=== PATIENT | male | born 1970 | race Caucasian/White ===

== ENCOUNTER 2019-10-20 16:50 | IRF | payer BC, SELFPAY ==
[2019-10-20 16:45] VITALS: BMI 34.9
--- NOTE | 2019-10-20 17:44 | PC.NURSE ---
This patient, Aleks Carpio, was admitted to [facility] Room 230-02. Patient/family oriented to hospital policies and general routines including ID bracelet, bed and alarms, visiting hours, pain management, procedures, bathroom and other care routines, personal items, smoking policy, room service/diet, and visiting hours. Valuables list has been completed. Information on how to activate the Rapid Response Team has been discussed. Patient/Family are encouraged to report perceived risks to care and to ask questions if they do not understand what they are told or what they should do.
[2019-10-20 18:02] VITALS: BP 149/79; PULSE 96; RESP 20; TEMP 37.3; O2SAT 99
[2019-10-20 18:52] VITALS: BMI 35.6
[2019-10-20] MEDS: methocarbamoL 500 MG TABLET 1000 MG PO (20:32)
[2019-10-20 20:33] LABS: Add Urine Microscopic? NO; Appearance Urine Clear (Clear); Bilirubin Urine Negative (Negative); Blood Urine Negative (Negative); Color Urine Yellow (Yellow); Glucose Urine UA Negative (Negative); Ketones Urine Negative (Negative); Leukocyte Esterase Ur Negative LEU/UL (Negative); Nitrate Urine Negative (Negative); Protein Urine Negative (Negative); Specific Grav Ur 1.018 (1.001-1.035); Urobilinogen Urine Negative mg/dL (<2.0)
[2019-10-20 21:37] VITALS: BP 127/71; PULSE 103; RESP 18; TEMP 36.6; O2SAT 97
[2019-10-20] MEDS: ONDANSETRON HCL ODT 4 MG TABLET PO (22:37)
[2019-10-21 05:29] LABS: Basophils Percent Auto 0.1 % (0.2-1.2); Eosinophils Absolute Auto 0.2 K/mm3 (0-0.3); Eosinophils Percent Auto 2.9 % (0-4.4); Hematocrit 25.5 % (42.0-52.0); Hemoglobin 8.2 g/dL (14.0-18.0); Immature Granulocyte Absolute 0.19 K/mm3 (0.00-0.031); Immature Granulocyte Percent A 2.5 % (0-0.5); Lymphocytes Percent Auto 17.4 % (18.3-44.2); Mean Corpuscular HGB Conc 32.2 g/dl (32-36); Mean Corpuscular Hemoglobin 28.6 pg (26-34); Mean Corpuscular Volume 88.9 fl (80-100); Mean Platelet Volume 8.7 fl (7.4-10.4); Monocytes Absolute Auto 0.9 K/mm3 (0.1-0.6); Monocytes Percent Auto 11.4 % (2.6-8.5); Neutrophils Absolute Auto 4.9 K/mm3 (1.3-6.7); Neutrophils Percent Auto 65.7 % (45.5-73.1); Platelet Count Result 191 k/mm3 (150-375); Red Blood Count 2.87 M/mm3 (4.6-6.20); Red Cell Distribution Width 12.9 % (11.5-14.5); White Blood Count 7.5 K/mm3 (4.5-10.0)
[2019-10-21 05:43] LABS: Anion Gap 5 mmol/L (8-16); Blood Urea Nitrogen 19 mg/dL (9-20); Calcium 7.9 mg/dL (8.4-10.2); Carbon Dioxide 26 mmol/L (22-30); Chloride 103 mmol/L (98-107); Estimated CRCL calculation 81 ml/min; Estimated Glomerular Filt Rate > 60; Glucose 114 mg/dL (75-110); Potassium 4.3 mmol/L (3.4-5.0); Sodium 134 mmol/L (137-145)
[2019-10-21 05:46] VITALS: BP 120/74; PULSE 84; RESP 18; TEMP 36.1; O2SAT 96
[2019-10-21] MEDS: methocarbamoL 500 MG TABLET 1000 MG PO ×4 (07:55→23:35)
[2019-10-21] MEDS: TAMSULOSIN HCL 0.4 MG CAPSULE PO (07:55)
[2019-10-21] MEDS: LIDOCAINE 5% PATCH 3 PATCH TOPICAL (07:56)
[2019-10-21] MEDS: ENOXAPARIN 40 MG/0.4 ML SYRINGE SUB-Q (07:56)
--- NOTE | 2019-10-21 12:00 | WPDREHABHP ---
H&P: HPI History of Present Illness Date/Time: 10/21/19 14:59 Chief complaint: mmt Narrative: Aleks Carpio is a 49 year old male HISTORY OF PRESENT ILLNESS: The patient's primary rehab impairment category is multiple major trauma The etiologic diagnosis is multiple major trauma after a fall from a tree I saw this patient [id number] on October 21, 2019 at 12 noon The patient is a 49-year-old right-handed white male with no significant past medical history presented to [facility] in [facility] on October 14, 2019 after falling off of a ladder when he was cutting date tree. The patient was approximately 15 to 20 feet high many fell and hit the ground on his right side. There was a positive loss of consciousness for less than a minute. The patient complained of right upper extremity, left hip, lower back, and right flank/chest pain. The evaluation demonstrated right 4th through 7 rib fractures, a tiny occult right pneumothorax, right pulmonary contusion, bilateral sacral fractures, left superior inferior pubic rami fractures, right humerus fracture and right radius fracture. Orthopedic surgery was consulted and the patient underwent an open reduction and internal fixation to the right distal radius and humeral shaft on October 16, 2019. Postoperatively the patient has experienced acute postoperative pain which he still continues to, acute blood-loss anemia, acute kidney injury, and urinary retention. He had a trial of urinary catheter however was unable to void and the catheter had to be put back on. Postoperative pain is being managed with oral analgesics acute blood-loss anemia is stable, acute kidney injury has resolved and the patient started on tamsulosin for any retention. He is nonweightbearing to the right upper extremity for 6 to 8 weeks and T2 toe-touch weight-bearing to the left lower extremity. He has a hard splint and sling to the right upper extremity. The patient was discharged to us on Lovenox for DVT prophylaxis. The patient does complain beside the pain at multiple sites that the paresthesias primarily of the right thumb and has been told it is due to the compromised blood supply however is seems like he might have stretched his brachial plexus when he landed on his right side he has also barely able to move his finger of his right hand which have been present since the injury The patient os has not traveled outside the [place] or had contact with someone who is ill that has traveled outside the [place] in the past 21 days. The patient has not traveled to an area of the [place] that is experiencing no transmission of the Coronavirus and has not had close personal contact with anyone that has. The patient does not have a fever. The patient is not experiencing lower respiratory illness symptoms. Therapy was initiated at the acute care facility and the patient transferred to us from [facility] in [facility] on October 20, 2019 on FALLS OR SURGERIES: The patient has had major surgeries in the 100 days prior to admission. They had falls in the past year. They had falls with injury in the past year. 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 The patient is able to stay on the 1st level if needed. The patient was completely independent and driving prior with no need for assistive device. The patient has a lot of friends and family that will be able to assist is following rehab if necessary. The patient is very cooperative and motivated to be independent cane. The most recent surgery the patient has was on the right upper extremity a during thi
[2019-10-21 12:37] VITALS: BMI 35.6
[2019-10-21 14:00] VITALS: BP 120/78; PULSE 91; RESP 17; TEMP 37; O2SAT 99
[2019-10-21 22:00] VITALS: BP 122/78; PULSE 84; RESP 20; TEMP 36.7; O2SAT 96
[2019-10-22] MEDS: ONDANSETRON HCL ODT 4 MG TABLET PO (05:12)
[2019-10-22 06:00] VITALS: BP 128/79; PULSE 65; RESP 20; TEMP 36.4; O2SAT 100
[2019-10-22] MEDS: methocarbamoL 500 MG TABLET 1000 MG PO ×3 (06:10→18:51)
[2019-10-22 08:00] VITALS: PULSE 65; RESP 20; O2SAT 100
[2019-10-22] MEDS: TAMSULOSIN HCL 0.4 MG CAPSULE PO (08:04)
[2019-10-22] MEDS: LIDOCAINE 5% PATCH 3 PATCH TOPICAL (08:04)
[2019-10-22] MEDS: ENOXAPARIN 40 MG/0.4 ML SYRINGE SUB-Q (08:04)
[2019-10-22] MEDS: DOCUSATE SODIUM 100 MG CAPSULE PO (12:08)
[2019-10-22 14:00] VITALS: BP 138/76; PULSE 68; RESP 20; TEMP 36.8; O2SAT 99
--- NOTE | 2019-10-22 16:04 | RPD ---
INDIVIDUALIZED PLAN OF CARE FOR Aleks Carpio Brief Synthesis of Pre-Admission Screen, Post-Admission Evaluation and Therapy Evaluations: The patient presents to rehab with major multiple trauma with multiple fracture of bilateral sacral fractures, left superior and inferior pubic rami fractures, and a closed displaced comminuted fracture of shaft of right humerus. Comorbidities include right 4-7 rib fractures, tiny occult right pneumothorax, right pulmonary contusion, closed fracture of styloid process of right ulna, closed fracture of distal end of right radius, acute postoperative and post-traumatic pain, respiratory insufficiency, urinary retention, leukocytosis, acute blood loss anemia requiring transfusion, constipation, and acute kidney injury. The complexity of the patient's medical management, nursing, and therapy needs require an inpatient rehab hospital stay with a physician-led interdisciplinary team approach. The patient?s needs will be best met in an intensive program vs. at a lower level of care. The patient requires physician services for medical oversight, management of postop complications in setting of present comorbidities, and pain management. He will be followed at least three times a week by the rehabilitation physician. The patient requires nursing services for DVT prophylactics, infection protection, medication management and education, pressure relief, and wound care. Deficits include:ADLs, Balance, Endurance, Family Training/Education, Mobility, Pain Management, ROM, Safety, Strength, and Transfers [employer]/Case Management for: Discharge Planning and Patient/Family Counseling Physical Therapy: 5 days per week for 90 minutes. Treatments may include: Therapeutic Exercise, Gait Training, Neuromuscular Re-education, Transfer Training, Community Reintegration, Bed Mobility, Patient/Family Education, Wheelchair Mobility Group Therapy/Concurrent Therapy Rationales: -Improve attention span during functional activities in a distracted environment. -Enhance problem solving and/or adequate judgment skills during functional activities in a distracted environment. -Promote increased safety awareness in a distracted environment to reduce fall risk with functional tasks, transfers, and ambulation to allow a more safe, self-sufficient return to the home environment. -Improve dynamic balance skills to promote safety and independence with functional activities in a distracted environment for maximum gain. Occupational Therapy: 5 days per week for 90 minutes. Treatments may include: Therapeutic Exercise, Therapeutic Activity, Cognitive Training, Self-Care Transfer Training, Community Reintegration, Home Management, Patient/Family Education, Wheelchair Mobility Training, Energy Conservation Training Group Therapy/Concurrent Therapy Rationales: -Allow therapist to observe and teach generalization and carry-over of skills learned in individual therapy. -Enhance problem solving and sequencing skills during therapeutic activities in a distracted environment. -Promote increased safety awareness in a realistic setting to reduce fall risk with functional tasks due to visual and verbal distractions. -Increase functional level with ADLs, ADL transfers and use of adaptive equipment through therapeutic activities with others while promoting safety to allow a more safe, self-sufficient return home. Medical Prognosis: Good Anticipated Length of Stay: 14 days Rehab Goals: Eating Goal: 06-Independent Oral Hygiene Goal: 06-Independent Toileting Hygiene Goal: 04-Supervision or Touching Assistance Shower/Bathe Self Goal: 04-Supervision or Touching Assistance Upper Body Dressing Goal: 05-Setup or Clean Up Assistance Lower Body Dressing Goal: 04-Supervision or Touching Assistance Putting On/Taking Off Footwear Goal: 04-Supervision or Touching Assistance Rolling Left and Right Goal: 06-Independent Sit to Lying Goal: 06-Independent Lying to Sitting on Side of Be
[2019-10-22] MEDS: NAPROXEN 250 MG TABLET PO (16:05)
[2019-10-22 22:00] VITALS: BP 123/76; PULSE 90; RESP 20; TEMP 36.5; O2SAT 96
[2019-10-23] MEDS: methocarbamoL 500 MG TABLET 1000 MG PO ×4 (00:03→18:19)
[2019-10-23 05:55] VITALS: BP 117/71; PULSE 67; RESP 20; TEMP 36.2; O2SAT 100
[2019-10-23] MEDS: NAPROXEN 250 MG TABLET PO ×2 (09:33→18:19)
[2019-10-23] MEDS: ENOXAPARIN 40 MG/0.4 ML SYRINGE SUB-Q (09:34)
[2019-10-23] MEDS: LIDOCAINE 5% PATCH 3 PATCH TOPICAL (09:34)
[2019-10-23] MEDS: TAMSULOSIN HCL 0.4 MG CAPSULE PO (09:34)
[2019-10-23] MEDS: polyethylene glycoL 3350 17 GM POWD.PACK PO (12:05)
[2019-10-23 14:00] VITALS: BP 129/70; PULSE 85; RESP 20; TEMP 36.1; O2SAT 100
--- NOTE | 2019-10-23 14:29 | WPDNEURORHBP ---
Subjective Date/time seen: 10/23/19 14:29 Interval history: this 49-year-old gentleman is here because of multiple major trauma including a right upper extremity and also the sacral fracture and the pelvic fractures and he has weight limitations his pain is better controlled and doing fairly well he denies any headache nausea vomiting chest pain shortness of breath fever chills sore throat Review of Systems Review of Systems: All systems reviewed & are unremarkable except as noted in HPI and below Functional Status Transfers Ability Ability to Transfer In/Out of Chair: Total Assistance X 2 Exam Const: General: comfortable and no acute distress HENMT: General nose exam: Normal nares present Mouth: Yes moist mucous membranes Eyes: General: appearance normal, both eyes and all related structures Neck: Neck: supple and no JVD Resp: Effort & Inspection: normal respiratory effort Auscultation: clear to auscultation bilaterally Cardio: Rate: regular rate Rhythm: regular rhythm GI: GI Palp: Yes Soft to palpation Auscultation: normal bowel sounds Neuro: Other: patient is awake and alert well oriented has normal speech and language function normal cranial examination but over weakness he has is related to the multiple trauma including the right upper extremity and the pelvic and sacral fractures Extrem: Other: right arm in the hard splint and he does have some movements of the fingers now comparing to when he came to us Psych: Mental Status: mental status grossly normal Objective Data Vital Signs Vital Signs: Vital Signs - 24 hr 10/22/19 22:00 10/23/19 05:55 10/23/19 14:00 Temperature 36.5 C 36.2 C L 36.1 C L Pulse Rate 90 67 85 Respiratory Rate 20 20 20 Blood Pressure 123/76 117/71 129/70 Pulse Oximetry 96 100 100 Intake/Output Intake/Output: Intake & Output 10/20/19 10/21/19 10/22/19 10/23/19 23:59 23:59 23:59 23:59 Intake Total 1320 480 600 Output Total 550 1150 Balance -550 170 480 600 Meds/Results Medications: Active Medications Generic Name Dose Route Start Last Admin Trade Name Freq PRN Reason Stop Dose Admin Hydrocodone Bitart/Acetaminophen 1 tab 10/22/19 08:07 10/23/19 09:31 [place] 7.5-325 Mg PO 1 tab Q4H PRN Administration Pain Rated 7-10 Docusate Sodium 100 mg 10/20/19 17:42 10/22/19 12:08 Colace Capsule PO 100 mg BID PRN Administration Constipation Enoxaparin Sodium 40 mg 10/21/19 09:00 10/23/19 09:34 Lovenox SUB-Q 11/17/19 09:01 40 mg DAILY BASILIO Administration Lidocaine 3 patch 10/21/19 09:00 10/23/19 09:34 Lidoderm TOPICAL 11/19/19 09:01 3 patch DAILY BASILIO Administration Methocarbamol 1,000 mg 10/21/19 13:00 10/23/19 12:05 Robaxin PO 11/04/19 06:01 1,000 mg Q6HR BASILIO Administration Naproxen 250 mg 10/22/19 17:00 10/23/19 09:33 Naproxen PO 250 mg BIDWM BASILIO Administration Ondansetron HCl 4 mg 10/20/19 17:42 10/22/19 05:12 Zofran Odt PO 4 mg Q8H PRN Administration Nausea Oxycodone HCl 10 mg 10/21/19 13:00 10/23/19 12:05 Roxicodone Ir Tablet PO 10 mg Q6HR BASILIO Administration Polyethylene Glycol 17 gm 10/22/19 19:00 10/23/19 12:05 Miralax PO 17 gm QAM PRN Administration Constipation Tamsulosin HCl 0.4 mg 10/21/19 09:00 10/23/19 09:34 Flomax PO 11/19/19 09:01 0.4 mg DAILY BASILIO Administration Progress Note: A&P Assessment and Plan (1) Concussion: Code(s): S06.0X9A - Concussion with loss of consciousness of unspecified duration, initial encounter Status: Acute (2) Pubic ramus fracture: Code(s): S32.599A - Other specified fracture of unspecified pubis, initial encounter for closed fracture Status: Acute (3) Sacral fracture: Code(s): S32.10XA - Unspecified fracture of sacrum, initial encounter for closed fracture Status: Acute (4) Status post fall: Code(s): Z91.81 - History of falling St
[2019-10-23 20:29] VITALS: BP 122/65; PULSE 99; RESP 18; TEMP 36.6; O2SAT 98
[2019-10-24] MEDS: methocarbamoL 500 MG TABLET 1000 MG PO ×5 (00:08→23:52)
[2019-10-24 05:30] VITALS: BP 115/75; PULSE 68; RESP 18; TEMP 36.6; O2SAT 100
[2019-10-24] MEDS: TAMSULOSIN HCL 0.4 MG CAPSULE PO (09:21)
[2019-10-24] MEDS: ENOXAPARIN 40 MG/0.4 ML SYRINGE SUB-Q (09:21)
[2019-10-24] MEDS: LIDOCAINE 5% PATCH 3 PATCH TOPICAL (09:22)
[2019-10-24] MEDS: NAPROXEN 250 MG TABLET PO ×2 (09:22→16:48)
[2019-10-24 14:00] VITALS: BP 136/70; PULSE 88; RESP 18; TEMP 36.9; O2SAT 99
[2019-10-24 14:37] VITALS: BMI 11.0
[2019-10-24 21:44] VITALS: BP 119/67; PULSE 91; RESP 18; TEMP 36.4; O2SAT 95
[2019-10-25 05:40] VITALS: BP 127/72; PULSE 82; RESP 18; TEMP 36.1; O2SAT 100
[2019-10-25] MEDS: methocarbamoL 500 MG TABLET 1000 MG PO ×3 (05:54→17:52)
[2019-10-25] MEDS: TAMSULOSIN HCL 0.4 MG CAPSULE PO (09:15)
[2019-10-25] MEDS: ENOXAPARIN 40 MG/0.4 ML SYRINGE SUB-Q (09:16)
[2019-10-25] MEDS: LIDOCAINE 5% PATCH 3 PATCH TOPICAL (09:17)
[2019-10-25] MEDS: NAPROXEN 250 MG TABLET PO ×2 (09:17→17:13)
--- NOTE | 2019-10-25 13:03 | WPDNEURORHBP ---
Subjective Date/time seen: 10/25/19 13:03 young man admitted to the rehab floor for multiple major trauma including the right upper extremity, sacral fracture and pelvic fracture with weight limitations at present pain is well controlled and has no obvious complaints of generalized symptomatology Review of Systems Review of Systems: All systems reviewed & are unremarkable except as noted in HPI and below Functional Status Transfers Ability Ability to Transfer In/Out of Chair: Total Assistance X 2 Exam Narrative: Exam Narrative: examination reveals him to be awake alert in no distress ear nose throat examination normal head normocephalic neck is supple no JVD heart regular with no murmur lungs clear to auscultation abdomen is soft normal bowel sounds no tenderness neurological is awake alert oriented x3 is speech nor dysphasic no dysarthric no dystonic the brain of the examination is normal motor examination revealed him to have no obvious change in the mental physical strength extremities normal and he has no obvious signs of depression Objective Data Vital Signs Vital Signs: Vital Signs - 24 hr 10/24/19 14:00 10/24/19 21:44 10/25/19 05:40 Temperature 36.9 C 36.4 C L 36.1 C L Pulse Rate 88 91 82 Respiratory Rate 18 18 18 Blood Pressure 136/70 119/67 127/72 Pulse Oximetry 99 95 100 Intake/Output Intake/Output: Intake & Output 10/22/19 10/23/19 10/24/19 10/25/19 23:59 23:59 23:59 23:59 Intake Total 480 840 520 360 Output Total 950 Balance 480 840 -430 360 Meds/Results Medications: Active Medications Generic Name Dose Route Start Last Admin Trade Name Armandoq PRN Reason Stop Dose Admin Hydrocodone Bitart/Acetaminophen 1 tab 10/22/19 08:07 10/23/19 14:41 [place] 7.5-325 Mg PO 1 tab Q4H PRN Administration Pain Rated 7-10 Docusate Sodium 100 mg 10/20/19 17:42 10/22/19 12:08 Colace Capsule PO 100 mg BID PRN Administration Constipation Enoxaparin Sodium 40 mg 10/21/19 09:00 10/25/19 09:16 Lovenox SUB-Q 11/17/19 09:01 40 mg DAILY BASILIO Administration Lidocaine 3 patch 10/21/19 09:00 10/25/19 09:17 Lidoderm TOPICAL 11/19/19 09:01 3 patch DAILY BASILIO Administration Methocarbamol 1,000 mg 10/21/19 13:00 10/25/19 09:15 Robaxin PO 11/04/19 06:01 1,000 mg Q6HR BASILIO Administration Naproxen 250 mg 10/22/19 17:00 10/25/19 09:17 Naproxen PO 250 mg BIDWM BASILIO Administration Ondansetron HCl 4 mg 10/20/19 17:42 10/22/19 05:12 Zofran Odt PO 4 mg Q8H PRN Administration Nausea Oxycodone HCl 10 mg 10/21/19 13:00 10/25/19 12:18 Roxicodone Ir Tablet PO 10 mg Q6HR BASILIO Administration Polyethylene Glycol 17 gm 10/22/19 19:00 10/23/19 12:05 Miralax PO 17 gm QAM PRN Administration Constipation Tamsulosin HCl 0.4 mg 10/21/19 09:00 10/25/19 09:15 Flomax PO 11/19/19 09:01 0.4 mg DAILY BASILIO Administration Progress Note: A&P Assessment and Plan (1) Concussion: Code(s): S06.0X9A - Concussion with loss of consciousness of unspecified duration, initial encounter Status: Acute (2) Pubic ramus fracture: Code(s): S32.599A - Other specified fracture of unspecified pubis, initial encounter for closed fracture Status: Acute (3) Sacral fracture: Code(s): S32.10XA - Unspecified fracture of sacrum, initial encounter for closed fracture Status: Acute (4) Status post fall: Code(s): Z91.81 - History of falling Status: Acute (5) Pulmonary contusion: Code(s): S27.329A - Contusion of lung, unspecified, initial encounter Status: Acute (6) Multiple rib fractures: Code(s): S22.49XA - Multiple fractures of ribs, unspecified side, initial encounter for closed fracture Status: Acute (7) Right humeral fracture: Code(s): S42.301A - Unspecified fracture of shaft of humerus, right arm, initial encounter for closed fracture Status: A
[2019-10-25 14:00] VITALS: BP 142/79; PULSE 82; RESP 20; TEMP 37.1; O2SAT 100
[2019-10-25 22:00] VITALS: BP 127/64; PULSE 97; RESP 18; TEMP 36.6; O2SAT 100
[2019-10-26] MEDS: methocarbamoL 500 MG TABLET 1000 MG PO ×4 (00:02→18:02)
[2019-10-26 06:00] VITALS: BP 128/73; PULSE 70; RESP 16; TEMP 36; O2SAT 100
[2019-10-26] MEDS: LIDOCAINE 5% PATCH 3 PATCH TOPICAL (09:52)
[2019-10-26] MEDS: TAMSULOSIN HCL 0.4 MG CAPSULE PO (09:52)
[2019-10-26] MEDS: NAPROXEN 250 MG TABLET PO ×2 (09:52→18:02)
[2019-10-26] MEDS: ENOXAPARIN 40 MG/0.4 ML SYRINGE SUB-Q (09:52)
--- NOTE | 2019-10-26 13:27 | PCDIET ---
Nutrition Follow-Up Complete: Nutrition Diagnosis: Predicted suboptimal oral intake related to patient dislike of bed luna use as evidenced by patient stating limiting intake to primarily liquids. Nutrition Goal: Patient to consume 75% of meals or greater and maintain weight. Goal consuming 100% of most meals on regular diet which is appropriate. Patient reports tolerating solid foods well without c/o or concerns. Last recorded weight is 109.6 kg. Recommend obtaining new weight. Bowel Motility: +BM today. Labs Reviewed: No new labs available. Meds Noted: [place], Colace, Zofran, Roxicodone, Miralax Additional Notes: No documented pressure sores. Will continue to monitor with same goal. Nutrition Monitoring and Evaluation: Follow up in 7 days.
[2019-10-26 14:00] VITALS: BP 135/74; PULSE 92; RESP 20; TEMP 36.3; O2SAT 100
--- NOTE | 2019-10-26 16:36 | PCOTNOTE ---
Addendum entered by Darrel Mandujano OT 10/26/19 16:41: Addendum, pt continues to be non weight bearing to Right upper extremity. Original Note: Late entry: 10/23/19: Therapist spoke with orthopedic physician Dr. Mensah's office to clarify orders and restrictions for right UE. Dr. Mensah states the patient may participate in Right hand ROM, wrist PROM, elbow PROM and shoulder ROM as tolerated by patient to prevent contracture. OK to remove splint and sling for therapy.
[2019-10-26 22:00] VITALS: BP 132/76; PULSE 95; RESP 20; TEMP 36.8; O2SAT 97
[2019-10-27 06:00] VITALS: BP 125/73; PULSE 72; RESP 20; TEMP 36.3; O2SAT 100
[2019-10-27] MEDS: methocarbamoL 500 MG TABLET 1000 MG PO ×4 (06:26→17:30)
[2019-10-27] MEDS: ENOXAPARIN 40 MG/0.4 ML SYRINGE SUB-Q (09:00)
[2019-10-27] MEDS: TAMSULOSIN HCL 0.4 MG CAPSULE PO (09:00)
[2019-10-27] MEDS: NAPROXEN 250 MG TABLET PO ×2 (09:01→17:30)
[2019-10-27] MEDS: LIDOCAINE 5% PATCH 3 PATCH TOPICAL (09:01)
[2019-10-27 14:00] VITALS: BP 133/74; PULSE 90; RESP 18; TEMP 36.6; O2SAT 100
--- NOTE | 2019-10-27 14:30 | PCOTNOTE ---
Mr. Carpio was evaluated for a tub transfer bench and drop arm commode on 10/26/09 by this occupational therapist. The tub transfer bench and drop arm commode will resolve that patient?s self-care limitations and will be used for ADL?s within the home. The patient is currently unable to utilize the tub or toilet within his home due to recent fall with pelvic, sacral, humoral, and radius fractures requiring toe touch weight bearing to left lower extremity and non weight bearing to right upper extremity. The patient is unable to step over edge of tub safely with weight bearing restrictions or tolerate standing for completion of shower. The patient is unable to ambulate to bathroom due to weight bearing restrictions and is unable to complete slide board transfer from wheelchair to standard toilet due to weakness and weight bearing restrictions. The patient is able to complete slide board transfer from wheelchair to drop arm commode safely. The patient can safely use the tub transfer bench and drop arm commode. Both the tub transfer bench and drop arm commode will decrease caregiver burden and allow for safety completion of toileting and bathing in the patient's home. The tub transfer bench and drop arm commode are required due to patients? history of multiple fractures with non weight bearing to right upper extremity and toe touch weight bearing to left lower extremity. I agree with and certify that the above recommendation is medically necessary. Referring Physician Date
--- NOTE | 2019-10-27 15:10 | WPDNEURORHBP ---
Subjective Date/time seen: 10/27/19 15:10 Interval history: this 49-year-old is a here after a fall with major multiple trauma he is nonweightbearing of the right upper extremity toe-touch weight-bearing on the left lower extremity due to multiple fracture as have been mentioned in my previous notes his pain control is better however that is the most important thing which is really not helping him to be more active in the PT and OT from the occupational therapist he does require minimum assist except for toileting his right fingers are improving slowly but difficulty is in the transferring and moving from bed to chair etc On the other hand he denies any headache nausea vomiting chest pain shortness of breath fever chills sore throat Review of Systems Review of Systems: All systems reviewed & are unremarkable except as noted in HPI and below Functional Status Transfers Ability Ability to Transfer In/Out of Chair: Standby Assistance Exam Const: General: comfortable and no acute distress HENMT: General nose exam: Normal nares present Mouth: Yes moist mucous membranes Eyes: General: appearance normal, both eyes and all related structures Neck: Neck: supple and no JVD Resp: Effort & Inspection: normal respiratory effort Auscultation: clear to auscultation bilaterally Cardio: Rate: regular rate Rhythm: regular rhythm GI: GI Palp: Yes Soft to palpation Auscultation: normal bowel sounds Skin: General skin exam: normal color and no rashes or lesions noted Neuro: Other: the way Zabrina patient is awake alert well oriented normal speech and language function normal cranial examination right upper extremities nonweightbearing and has the hard splint fingers moving little bit and the sensation is coming back slowly almost all limitations are due to the multiple fractures which Zabrina Dillard the pelvic fracture on the left side the extremity which is functioning helping him is the left upper extremity and right lower extremity Extrem: Other: hard splint for the right forearm Psych: Mental Status: mental status grossly normal Objective Data Vital Signs Vital Signs: Vital Signs - 24 hr 10/26/19 22:00 10/27/19 06:00 10/27/19 14:00 Temperature 36.8 C 36.3 C L 36.6 C Pulse Rate 95 72 90 Respiratory Rate 20 20 18 Blood Pressure 132/76 125/73 133/74 Pulse Oximetry 97 100 100 Intake/Output Intake/Output: Intake & Output 10/24/19 10/25/19 10/26/19 10/27/19 23:59 23:59 23:59 23:59 Intake Total 752 565 2597 600 Output Total 950 1000 8140 920 Balance -837 -437 -043 -414 Meds/Results Medications: Active Medications Generic Name Dose Route Start Last Admin Trade Name Freq PRN Reason Stop Dose Admin Hydrocodone Bitart/Acetaminophen 1 tab 10/22/19 08:07 10/23/19 14:41 [place] 7.5-325 Mg PO 1 tab Q4H PRN Administration Pain Rated 7-10 Docusate Sodium 100 mg 10/20/19 17:42 10/22/19 12:08 Colace Capsule PO 100 mg BID PRN Administration Constipation Enoxaparin Sodium 40 mg 10/21/19 09:00 10/27/19 09:00 Lovenox SUB-Q 11/17/19 09:01 40 mg DAILY BASILIO Administration Lidocaine 3 patch 10/21/19 09:00 10/27/19 09:01 Lidoderm TOPICAL 11/19/19 09:01 3 patch DAILY BASILIO Administration Methocarbamol 1,000 mg 10/21/19 13:00 10/27/19 11:55 Robaxin PO 11/04/19 06:01 1,000 mg Q6HR BASILIO Administration Naproxen 250 mg 10/22/19 17:00 10/27/19 09:01 Naproxen PO 250 mg BIDWM BASILIO Administration Ondansetron HCl 4 mg 10/20/19 17:42 10/22/19 05:12 Zofran Odt PO 4 mg Q8H PRN Administration Nausea Oxycodone HCl 10 mg 10/21/19 13:00 10/27/19 11:55 Roxicodone Ir Tablet PO 10 mg Q6HR BASILIO Administration Polyethylene Glycol 17 gm 10/22/19 19:00 10/23/19 12:05 Miralax PO 17 gm QAM PRN Administration Constipation Tamsulosin HCl 0.4 mg 10/21/19 09:00 10/27/19 09:00 Flomax PO 11/19/19 09:01 0.4 mg DAILY BASILIO Administration
[2019-10-27 21:10] VITALS: BP 117/66; PULSE 92; RESP 18; TEMP 36.7; O2SAT 97
[2019-10-28] MEDS: methocarbamoL 500 MG TABLET 1000 MG PO ×4 (00:06→19:01)
[2019-10-28 05:07] LABS: Basophils Absolute Auto 0.1 K/mm3 (0.0-0.1); Basophils Percent Auto 0.5 % (0.2-1.2); Eosinophils Absolute Auto 0.4 K/mm3 (0-0.3); Eosinophils Percent Auto 4.3 % (0-4.4); Hematocrit 28.1 % (42.0-52.0); Hemoglobin 8.8 g/dL (14.0-18.0); Lymphocytes Absolute Auto 1.68 K/mm3 (0.9-3.2); Mean Corpuscular HGB Conc 31.3 g/dl (32-36); Mean Corpuscular Volume 89.5 fl (80-100); Mean Platelet Volume 8.4 fl (7.4-10.4); Monocytes Absolute Auto 0.9 K/mm3 (0.1-0.6); Monocytes Percent Auto 9.4 % (2.6-8.5); Neutrophils Absolute Auto 6.6 K/mm3 (1.3-6.7); Neutrophils Percent Auto 66.8 % (45.5-73.1); Platelet Count Result 412 k/mm3 (150-375); Red Blood Count 3.14 M/mm3 (4.6-6.20); Red Cell Distribution Width 12.7 % (11.5-14.5); White Blood Count 9.9 K/mm3 (4.5-10.0)
[2019-10-28 05:22] LABS: Anion Gap 6 mmol/L (8-16); Blood Urea Nitrogen 24 mg/dL (9-20); Calcium 8.4 mg/dL (8.4-10.2); Carbon Dioxide 27 mmol/L (22-30); Chloride 103 mmol/L (98-107); Estimated CRCL calculation 75 ml/min; Estimated Glomerular Filt Rate 59; Glucose 115 mg/dL (75-110); Potassium 4.7 mmol/L (3.4-5.0); Sodium 136 mmol/L (137-145)
[2019-10-28 05:46] VITALS: BP 125/74; PULSE 70; RESP 18; TEMP 36.2; O2SAT 100
[2019-10-28 08:00] VITALS: PULSE 94; RESP 20; O2SAT 97
--- NOTE | 2019-10-28 08:31 | PCPTNOTE ---
Aleks Oneal Shirin was evaluated for a slide board on 10/28/2019 by this physical therapist. The slide board will resolve patient's mobility limitations and will be used for ADL's within the home. The patient can safely use the slide board. ?The slide board will resolve the patient?s mobility deficits, including transfers/ADL's. Fany Virgen PT
[2019-10-28] MEDS: ENOXAPARIN 40 MG/0.4 ML SYRINGE SUB-Q (09:40)
[2019-10-28] MEDS: LIDOCAINE 5% PATCH 3 PATCH TOPICAL (09:40)
[2019-10-28] MEDS: TAMSULOSIN HCL 0.4 MG CAPSULE PO (09:41)
[2019-10-28] MEDS: NAPROXEN 250 MG TABLET PO ×2 (09:41→19:01)
[2019-10-28 14:00] VITALS: BP 129/73; PULSE 94; RESP 20; TEMP 37.1; O2SAT 97
--- NOTE | 2019-10-28 15:22 | WPDNEURORHBP ---
Subjective Date/time seen: 10/28/19 15:22 Interval history: this 49-year-old is is status post multiple fracture secondary to a fall which includes the right upper extremity and the left pelvic and the sacral fractures he is nonweightbearing of the right upper extremity and toe-touch weight-bearing of the left lower extremity he is moving forward is pain is under control we have started the bladder training on him hopefully to get rid of the Medrano catheter soon he denies any headache nausea vomiting chest pain shortness of breath fever chills sore throat Review of Systems Review of Systems: All systems reviewed & are unremarkable except as noted in HPI and below Functional Status Transfers Ability Ability to Transfer In/Out of Chair: Standby Assistance Exam Const: General: comfortable and no acute distress HENMT: General nose exam: Normal nares present Mouth: Yes moist mucous membranes Eyes: General: appearance normal, both eyes and all related structures Neck: Neck: supple and no JVD Resp: Effort & Inspection: normal respiratory effort Auscultation: clear to auscultation bilaterally Cardio: Rate: regular rate Rhythm: regular rhythm GI: GI Palp: Yes Soft to palpation Auscultation: normal bowel sounds Urinary Catheter: Urinary Catheter: patent and draining Skin: General skin exam: normal color and no rashes or lesions noted Neuro: Other: the patient's right upper extremity is nonweightbearing due to the fracture of the humerus and the radius the hard splint is still on but he is able to move fingers little bit and getting the active range and passive motion of the shoulder area He is toe-touch weight-bearing of the left lower extremity due to the sacral and the pelvic fractures however engage in therapy and doing fairly well making progress Extrem: Other: right forearm in the hard splint able to move the fingers little bit the sensory deficit at the dorsal aspect of the hand remains roughly about the same Psych: Mental Status: mental status grossly normal Objective Data Vital Signs Vital Signs: Vital Signs - 24 hr 10/27/19 21:10 10/28/19 05:46 Temperature 36.7 C 36.2 C L Pulse Rate 92 70 Respiratory Rate 18 18 Blood Pressure 117/66 125/74 Pulse Oximetry 97 100 Intake/Output Intake/Output: Intake & Output 10/25/19 10/26/19 10/27/19 10/28/19 23:59 23:59 23:59 23:59 Intake Total 840 1270 1840 480 Output Total 1000 2050 1725 Balance -160 -780 115 480 Meds/Results Medications: Active Medications Generic Name Dose Route Start Last Admin Trade Name Agapito PRN Reason Stop Dose Admin Hydrocodone Bitart/Acetaminophen 1 tab 10/22/19 08:07 10/23/19 14:41 [place] 7.5-325 Mg PO 1 tab Q4H PRN Administration Pain Rated 7-10 Docusate Sodium 100 mg 10/20/19 17:42 10/22/19 12:08 Colace Capsule PO 100 mg BID PRN Administration Constipation Enoxaparin Sodium 40 mg 10/21/19 09:00 10/28/19 09:40 Lovenox SUB-Q 11/17/19 09:01 40 mg DAILY BASILIO Administration Lidocaine 3 patch 10/21/19 09:00 10/28/19 09:40 Lidoderm TOPICAL 11/19/19 09:01 3 patch DAILY BASILIO Administration Methocarbamol 1,000 mg 10/21/19 13:00 10/28/19 13:01 Robaxin PO 11/04/19 06:01 1,000 mg Q6HR BASILIO Administration Naproxen 250 mg 10/22/19 17:00 10/28/19 09:41 Naproxen PO 250 mg BIDWM BASILIO Administration Ondansetron HCl 4 mg 10/20/19 17:42 10/22/19 05:12 Zofran Odt PO 4 mg Q8H PRN Administration Nausea Oxycodone HCl 10 mg 10/21/19 13:00 10/28/19 13:01 Roxicodone Ir Tablet PO 10 mg Q6HR BASILIO Administration Polyethylene Glycol 17 gm 10/22/19 19:00 10/23/19 12:05 Miralax PO 17 gm QAM PRN Administration Constipation Tamsulosin HCl 0.4 mg 10/21/19 09:00 10/28/19 09:41 Flomax PO 11/19/19 09:01 0.4 mg DAILY BASILIO Administration Labs Labs: Laboratory Results - last 24 hr 10/28/19 10/28/19 04:55 04:55 WBC 9
--- NOTE | 2019-10-28 15:23 | PCPTNOTE ---
Fany Virgen PT completed an inpatient rehab wheelchair evaluation on Aleks Carpio on 10/28/2019. The patient is unable to safely and independently ambulate household distances due to their current impairments. Their diagnosis is mmt and their impairments include decreased strength, decreased endurance, decreased range of motion, decreased balance, lower extremity weakness, and ataxia. Aleks's weight bearing status is toe touch weight-bearing on left leg and non weightbearing at right arm. The patient demonstrates significant functional mobility limitations that impair their ability to participate in mobility-related activities of daily living (MRADLs), including toileting, feeding, dressing, grooming, and bathing in the customary locations in the home. These limitations cannot be sufficiently resolved by the use of an appropriately fitted cane or walker. It is recommended that the patient utilize a wheelchair for functional mobility within the home in order to facilitate optimal safety, independence and participation in all MRADL's and adequately access their home environment on a regular basis. The patient's home provides adequate access between rooms, maneuvering space, and surfaces to accommodate the recommended wheelchair. The use of a wheelchair for functional mobility is strongly recommended and the patient is receptive to using the wheelchair. The use of this wheelchair will significantly improve the patient's ability to participate in MRADLS and the patient will use it on a regular basis in the home. This will facilitate optimal safety, independence, and participation. The patient has demonstrated sufficient physical and mental capabilities needed to safely propel a manual wheelchair that is provided in the home during a typical day. Recommended Wheelchair Frame: standard with swing-away arm rests (needed due to slide board transfers) Recommended Wheelchair Size: 18 x 18 Recommended Wheelchair Cushion:standard Wheelchair Leg Recommendations: elevating, detachable - Elevating legrests are recommended because the patient has significant edema of the lower extremities that requires an elevating legrest. - Anti-tippers are recommended due to patient demonstrating increased risk for falls. They would benefit from anti-tippers with added safety and stabilization. ___Fany Virgen PT Evaluating Therapist __10/28/19___ I agree with and certify that the above recommendation is medically necessary. Referring Physician Date I agree with and certify that the above recommendation is medically necessary. Referring Physician Date
[2019-10-28 20:34] VITALS: BP 136/69; PULSE 97; RESP 18; TEMP 37; O2SAT 98
[2019-10-29] MEDS: methocarbamoL 500 MG TABLET 1000 MG PO ×4 (00:22→18:25)
[2019-10-29 05:24] VITALS: BP 111/61; PULSE 73; RESP 18; TEMP 36.3; O2SAT 99
[2019-10-29] MEDS: ENOXAPARIN 40 MG/0.4 ML SYRINGE SUB-Q (09:46)
[2019-10-29] MEDS: LIDOCAINE 5% PATCH 3 PATCH TOPICAL (09:46)
[2019-10-29] MEDS: TAMSULOSIN HCL 0.4 MG CAPSULE PO (09:46)
[2019-10-29] MEDS: NAPROXEN 250 MG TABLET PO ×2 (09:46→18:25)
[2019-10-29 14:00] VITALS: BP 136/79; PULSE 82; RESP 20; TEMP 36.6; O2SAT 100
[2019-10-29] MEDS: DOCUSATE SODIUM 100 MG CAPSULE PO (18:26)
[2019-10-29 20:22] VITALS: BP 132/65; PULSE 100; RESP 18; TEMP 36.5; O2SAT 92
[2019-10-30] MEDS: methocarbamoL 500 MG TABLET 1000 MG PO ×4 (00:04→17:27)
[2019-10-30 05:15] VITALS: BP 111/61; PULSE 67; RESP 18; TEMP 36.2; O2SAT 99
[2019-10-30] MEDS: ENOXAPARIN 40 MG/0.4 ML SYRINGE SUB-Q (12:53)
[2019-10-30] MEDS: TAMSULOSIN HCL 0.4 MG CAPSULE PO (12:55)
[2019-10-30] MEDS: NAPROXEN 250 MG TABLET PO ×2 (12:55→17:28)
[2019-10-30 14:00] VITALS: BP 137/60; PULSE 73; RESP 20; TEMP 36.9; O2SAT 98
--- NOTE | 2019-10-30 15:51 | WPDNEURORHBP ---
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 multiple fractures including the right upper extremity and the left pelvis sacral fractures he is nonweightbearing of the right upper extremity and toe-touch weight-bearing on the left lower extremity is doing fairly well his Medrano catheter is out and hoping he may not have to inserted again and see if he is able to urinate he denies any headache nausea vomiting chest pain shortness of breath fever chills sore throat Review of Systems Review of Systems: All systems reviewed & are unremarkable except as noted in HPI and below Functional Status Transfers Ability Ability to Transfer In/Out of Chair: Standby Assistance Exam Const: General: comfortable and no acute distress HENMT: General nose exam: Normal nares present Mouth: Yes moist mucous membranes Eyes: General: appearance normal, both eyes and all related structures Neck: Neck: supple and no JVD Resp: Effort & Inspection: normal respiratory effort Auscultation: clear to auscultation bilaterally Cardio: Rate: regular rate Rhythm: regular rhythm GI: GI Palp: Yes Soft to palpation Auscultation: normal bowel sounds Skin: General skin exam: normal color and no rashes or lesions noted Neuro: Other: patient is awake and alert well oriented normal speech and language function normal cranial examination the right forearm is in the hard splint the finger movements are better however the sensory deficit in the thumb at the dorsum of the hand is roughly about the same any weakness in the lower extremities related to the fractures affecting his pelvis and the sacrum Extrem: Other: as mentioned in the neuro exam Psych: Mental Status: mental status grossly normal Objective Data Vital Signs Vital Signs: Vital Signs - 24 hr 10/29/19 20:22 10/30/19 05:15 10/30/19 14:00 Temperature 36.5 C 36.2 C L 36.9 C Pulse Rate 100 67 73 Respiratory Rate 18 18 20 Blood Pressure 132/65 111/61 137/60 Pulse Oximetry 92 99 98 Intake/Output Intake/Output: Intake & Output 10/27/19 10/28/19 10/29/19 10/30/19 23:59 23:59 23:59 23:59 Intake Total 2897 672 1432 480 Output Total 1725 750 750 Balance 115 -30 280 480 Meds/Results Medications: Active Medications Generic Name Dose Route Start Last Admin Trade Name Freq PRN Reason Stop Dose Admin Hydrocodone Bitart/Acetaminophen 1 tab 10/22/19 08:07 10/23/19 14:41 [place] 7.5-325 Mg PO 1 tab Q4H PRN Administration Pain Rated 7-10 Docusate Sodium 100 mg 10/20/19 17:42 10/29/19 18:26 Colace Capsule PO 100 mg BID PRN Administration Constipation Enoxaparin Sodium 40 mg 10/21/19 09:00 10/30/19 12:53 Lovenox SUB-Q 11/17/19 09:01 40 mg DAILY BASILIO Administration Lidocaine 3 patch 10/21/19 09:00 10/30/19 12:54 Lidoderm TOPICAL 11/19/19 09:01 Not Given DAILY BASILIO Methocarbamol 1,000 mg 10/21/19 13:00 10/30/19 05:46 Robaxin PO 11/04/19 06:01 1,000 mg Q6HR BASILIO Administration Naproxen 250 mg 10/22/19 17:00 10/30/19 12:55 Naproxen PO 250 mg BIDWM BASILIO Administration Ondansetron HCl 4 mg 10/20/19 17:42 10/22/19 05:12 Zofran Odt PO 4 mg Q8H PRN Administration Nausea Oxycodone HCl 10 mg 10/21/19 13:00 10/30/19 12:53 Roxicodone Ir Tablet PO 10 mg Q6HR BASILIO Administration Polyethylene Glycol 17 gm 10/22/19 19:00 10/23/19 12:05 Miralax PO 17 gm QAM PRN Administration Constipation Tamsulosin HCl 0.4 mg 10/21/19 09:00 10/30/19 12:55 Flomax PO 11/19/19 09:01 0.4 mg DAILY BASILIO Administration Progress Note: A&P Assessment and Plan (1) Concussion: Code(s): S06.0X9A - Concussion with loss of consciousness of unspecified duration, initial encounter Status: Acute (2) Pubic ramus fracture: Code(s): S32.599A - Other specified fracture of unspecified pubis, initial encounter for
[2019-10-30] MEDS: DOCUSATE SODIUM 100 MG CAPSULE PO (17:28)
[2019-10-30 22:00] VITALS: BP 134/76; PULSE 85; RESP 20; TEMP 36.7; O2SAT 100
[2019-10-31 06:00] VITALS: BP 105/69; PULSE 65; RESP 18; TEMP 36.8; O2SAT 100
[2019-10-31] MEDS: methocarbamoL 500 MG TABLET 1000 MG PO ×4 (06:19→18:32)
[2019-10-31] MEDS: ENOXAPARIN 40 MG/0.4 ML SYRINGE SUB-Q (08:58)
[2019-10-31] MEDS: NAPROXEN 250 MG TABLET PO ×2 (08:59→18:32)
[2019-10-31] MEDS: LIDOCAINE 5% PATCH 3 PATCH TOPICAL (08:59)
[2019-10-31] MEDS: TAMSULOSIN HCL 0.4 MG CAPSULE PO (08:59)
[2019-10-31 14:00] VITALS: BP 125/71; PULSE 83; RESP 16; TEMP 36.6; O2SAT 100
[2019-10-31] MEDS: DOCUSATE SODIUM 100 MG CAPSULE PO (18:32)
--- NOTE | 2019-10-31 18:45 | WPDNEURORHBP ---
Subjective Date/time seen: 10/31/19 18:45 Interval history: this 49-year-old is here due to multiple of fracture earlier this morning he complained some left eye pain which was trivial and went away when he changes position he denies any headache nausea vomiting chills sore throat Review of Systems Review of Systems: All systems reviewed & are unremarkable except as noted in HPI and below Functional Status Transfers Ability Ability to Transfer In/Out of Chair: Contact Guard Exam Const: General: comfortable and no acute distress HENMT: General nose exam: Normal nares present Mouth: Yes moist mucous membranes Eyes: General: appearance normal, both eyes and all related structures Neck: Neck: supple and no JVD Resp: Effort & Inspection: normal respiratory effort Auscultation: clear to auscultation bilaterally Cardio: Rate: regular rate Rhythm: regular rhythm GI: GI Palp: Yes Soft to palpation Auscultation: normal bowel sounds Skin: General skin exam: normal color and no rashes or lesions noted Neuro: Other: patient is awake and alert well oriented not any distress with limitation of the right upper extremity in the left lower extremity is doing fairly well in the rehab and looking forward to be going home next week Extrem: Other: right upper extremity is in the hard splint the finger movements a slowly improving the sensory deficit on the dorsum a aspect of the hand also the right thumb Psych: Mental Status: mental status grossly normal Objective Data Vital Signs Vital Signs: Vital Signs - 24 hr 10/30/19 22:00 10/31/19 06:00 10/31/19 14:00 Temperature 36.7 C 36.8 C 36.6 C Pulse Rate 85 65 83 Respiratory Rate 20 18 16 Blood Pressure 134/76 105/69 125/71 Pulse Oximetry 100 100 100 Intake/Output Intake/Output: Intake & Output 10/28/19 10/29/19 10/30/19 10/31/19 23:59 23:59 23:59 23:59 Intake Total 720 1030 480 840 Output Total 750 750 750 Balance -30 280 -270 840 Meds/Results Medications: Active Medications Generic Name Dose Route Start Last Admin Trade Name Freq PRN Reason Stop Dose Admin Hydrocodone Bitart/Acetaminophen 1 tab 10/22/19 08:07 10/23/19 14:41 [place] 7.5-325 Mg PO 1 tab Q4H PRN Administration Pain Rated 7-10 Docusate Sodium 100 mg 10/31/19 17:00 10/31/19 18:32 Colace Capsule PO 100 mg BID BASILIO Administration Enoxaparin Sodium 40 mg 10/21/19 09:00 10/31/19 08:58 Lovenox SUB-Q 11/17/19 09:01 40 mg DAILY BASILIO Administration Lidocaine 3 patch 10/21/19 09:00 10/31/19 08:59 Lidoderm TOPICAL 11/19/19 09:01 3 patch DAILY BASILIO Administration Methocarbamol 1,000 mg 10/21/19 13:00 10/31/19 18:32 Robaxin PO 11/04/19 06:01 1,000 mg Q6HR BASILIO Administration Naproxen 250 mg 10/22/19 17:00 10/31/19 18:32 Naproxen PO 250 mg BIDWM BASILIO Administration Ondansetron HCl 4 mg 10/20/19 17:42 10/22/19 05:12 Zofran Odt PO 4 mg Q8H PRN Administration Nausea Oxycodone HCl 10 mg 10/21/19 13:00 10/31/19 18:32 Roxicodone Ir Tablet PO 10 mg Q6HR BASILIO Administration Polyethylene Glycol 17 gm 10/22/19 19:00 10/23/19 12:05 Miralax PO 17 gm QAM PRN Administration Constipation Tamsulosin HCl 0.4 mg 10/21/19 09:00 10/31/19 08:59 Flomax PO 11/19/19 09:01 0.4 mg DAILY BASILIO Administration Progress Note: A&P Assessment and Plan (1) Concussion: Code(s): S06.0X9A - Concussion with loss of consciousness of unspecified duration, initial encounter Status: Acute (2) Pubic ramus fracture: Code(s): S32.599A - Other specified fracture of unspecified pubis, initial encounter for closed fracture Status: Acute (3) Sacral fracture: Code(s): S32.10XA - Unspecified fracture of sacrum, initial encounter for closed fracture Status: Acute (4) Status post fall: Code(s): Z91.81 - History of falling Status: Acute (5) Pulmonary contusion:
[2019-10-31 22:00] VITALS: BP 119/68; PULSE 96; RESP 18; TEMP 37.2; O2SAT 100
[2019-11-01] MEDS: methocarbamoL 500 MG TABLET 1000 MG PO ×5 (05:58→23:53)
[2019-11-01 06:00] VITALS: BP 118/76; PULSE 64; RESP 18; TEMP 37.1; O2SAT 100
[2019-11-01] MEDS: LIDOCAINE 5% PATCH 3 PATCH TOPICAL (09:27)
[2019-11-01] MEDS: TAMSULOSIN HCL 0.4 MG CAPSULE PO (09:28)
[2019-11-01] MEDS: ENOXAPARIN 40 MG/0.4 ML SYRINGE SUB-Q (09:28)
[2019-11-01] MEDS: DOCUSATE SODIUM 100 MG CAPSULE PO ×2 (09:28→18:25)
[2019-11-01] MEDS: NAPROXEN 250 MG TABLET PO ×2 (09:28→18:25)
[2019-11-01 14:00] VITALS: BP 108/62; PULSE 77; RESP 16; TEMP 36.3; O2SAT 100
[2019-11-01 22:00] VITALS: BP 134/76; PULSE 102; RESP 18; TEMP 37; O2SAT 97
[2019-11-02] MEDS: methocarbamoL 500 MG TABLET 1000 MG PO ×4 (05:54→23:59)
[2019-11-02 06:00] VITALS: BP 116/74; PULSE 67; RESP 20; TEMP 36.8; O2SAT 100
[2019-11-02] MEDS: NAPROXEN 250 MG TABLET PO ×2 (09:21→17:29)
[2019-11-02] MEDS: DOCUSATE SODIUM 100 MG CAPSULE PO ×2 (09:21→17:29)
[2019-11-02] MEDS: ENOXAPARIN 40 MG/0.4 ML SYRINGE SUB-Q (09:21)
[2019-11-02] MEDS: TAMSULOSIN HCL 0.4 MG CAPSULE PO (09:22)
[2019-11-02] MEDS: LIDOCAINE 5% PATCH 3 PATCH TOPICAL (09:22)
--- NOTE | 2019-11-02 12:42 | WPDNEURORHBP ---
Subjective Date/time seen: 11/02/19 12:42 Interval history: this young 49-year-old gentleman is here status post fall with multiple fractures affecting the right upper extremity and also the left lower extremity the weight-bearing status remains the same med he is making excellent progress and doing fairly well does not have any specific complaints the pain isn't controlled no headache nausea vomiting chest pain shortness of breath fever chills sore throat Review of Systems Review of Systems: All systems reviewed & are unremarkable except as noted in HPI and below Functional Status Ambulation Ability Ambulation Assistive Devices: Parallel Bars Transfers Ability Ability to Transfer In/Out of Chair: Contact Guard Exam Const: General: comfortable and no acute distress HENMT: General nose exam: Normal nares present Mouth: Yes moist mucous membranes Eyes: General: appearance normal, both eyes and all related structures Neck: Neck: supple and no JVD Resp: Effort & Inspection: normal respiratory effort Auscultation: clear to auscultation bilaterally Cardio: Rate: regular rate Rhythm: regular rhythm GI: GI Palp: Yes Soft to palpation Auscultation: normal bowel sounds Skin: General skin exam: normal color and no rashes or lesions noted Neuro: Other: patient is awake alert well oriented time place and person any weakness is related to the weight-bearing struck [place] except the fact that his right hand is weak which is related to vascular and 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 but is slowly improving Extrem: Other: right upper extremity is in the splint and the finger movements are slowly improving sensory deficit of the hand remained the same Psych: Mental Status: mental status grossly normal Objective Data Vital Signs Vital Signs: Vital Signs - 24 hr 11/01/19 14:00 11/01/19 22:00 11/02/19 06:00 Temperature 36.3 C L 37.0 C 36.8 C Pulse Rate 77 102 H 67 Respiratory Rate 16 18 20 Blood Pressure 108/62 134/76 116/74 Pulse Oximetry 100 97 100 Intake/Output Intake/Output: Intake & Output 10/30/19 10/31/19 11/01/19 11/02/19 23:59 23:59 23:59 23:59 Intake Total 480 840 360 440 Output Total 750 Balance -270 840 360 440 Meds/Results Medications: Active Medications Generic Name Dose Route Start Last Admin Trade Name Freq PRN Reason Stop Dose Admin Hydrocodone Bitart/Acetaminophen 1 tab 10/22/19 08:07 10/23/19 14:41 [place] 7.5-325 Mg PO 1 tab Q4H PRN Administration Pain Rated 7-10 Docusate Sodium 100 mg 10/31/19 17:00 11/02/19 09:21 Colace Capsule PO 100 mg BID BASILIO Administration Enoxaparin Sodium 40 mg 10/21/19 09:00 11/02/19 09:21 Lovenox SUB-Q 11/17/19 09:01 40 mg DAILY BASILIO Administration Lidocaine 3 patch 10/21/19 09:00 11/02/19 09:22 Lidoderm TOPICAL 11/19/19 09:01 3 patch DAILY BASILIO Administration Methocarbamol 1,000 mg 10/21/19 13:00 11/02/19 05:54 Robaxin PO 11/04/19 06:01 1,000 mg Q6HR BASILIO Administration Naproxen 250 mg 10/22/19 17:00 11/02/19 09:21 Naproxen PO 250 mg BIDWM BASILIO Administration Ondansetron HCl 4 mg 10/20/19 17:42 10/22/19 05:12 Zofran Odt PO 4 mg Q8H PRN Administration Nausea Oxycodone HCl 10 mg 10/21/19 13:00 11/02/19 05:55 Roxicodone Ir Tablet PO 10 mg Q6HR BASILIO Administration Polyethylene Glycol 17 gm 10/22/19 19:00 10/23/19 12:05 Miralax PO 17 gm QAM PRN Administration Constipation Tamsulosin HCl 0.4 mg 10/21/19 09:00 11/02/19 09:22 Flomax PO 11/19/19 09:01 0.4 mg DAILY BASILIO Administration Progress Note: A&P Assessment and Plan (1) Concussion: Code(s): S06.0X9A - Concussion with loss of consciousness of unspecified duration, initial encounter Status: Acute (2) Pubic ramus fracture: Code(s): S32.599A - Other specified fracture of unspecified pubis, initial encounter for closed fracture Sta
[2019-11-02 14:00] VITALS: BP 113/67; PULSE 94; RESP 20; TEMP 36.5; O2SAT 100
[2019-11-02 20:30] VITALS: PULSE 94; RESP 20; O2SAT 100
[2019-11-02 22:00] VITALS: BP 117/67; PULSE 85; RESP 16; TEMP 36.8; O2SAT 99
[2019-11-03] MEDS: methocarbamoL 500 MG TABLET 1000 MG PO ×3 (05:58→17:33)
[2019-11-03 06:00] VITALS: BP 125/76; PULSE 74; RESP 16; TEMP 36.4; O2SAT 100
[2019-11-03] MEDS: LIDOCAINE 5% PATCH 3 PATCH TOPICAL (08:19)
[2019-11-03] MEDS: NAPROXEN 250 MG TABLET PO ×2 (08:20→17:33)
[2019-11-03] MEDS: TAMSULOSIN HCL 0.4 MG CAPSULE PO (08:20)
[2019-11-03] MEDS: DOCUSATE SODIUM 100 MG CAPSULE PO ×2 (08:20→17:33)
[2019-11-03] MEDS: ENOXAPARIN 40 MG/0.4 ML SYRINGE SUB-Q (08:21)
[2019-11-03 08:30] VITALS: PULSE 76; RESP 16; O2SAT 100
--- NOTE | 2019-11-03 09:26 | PCPTNOTE ---
Aleks Carpio was evaluated for a hemicane on 11/03/2019 by this physical therapist. The hemicane will resolve patient's mobility limitations and will be used for ADL's within the home. The patient can safely use the hemicane. ?The hemicane will resolve the patient?s mobility deficits, including transfers/ADL's.
--- NOTE | 2019-11-03 13:14 | PCDIET ---
Nutrition Follow-Up Complete: Nutrition Diagnosis: Predicted suboptimal oral intake related to patient dislike of bed luna use as evidenced by patient stating limiting intake to primarily liquids. Nutrition Goal: Patient to consume 75% of meals or greater and maintain weight. Goal met. Patient consuming 100% of most recorded meals on regular diet which is appropriate. Noted few meal refusals which occurred when family/friends brought in food for patient. Last recorded weight is 109.6 kg. Recommend obtaining new weight. Bowel Motility: Last bowel movement on 11/02/19, per nursing flowsheet. Labs Reviewed: Hgb (8.8), Hct (28.1), Glu (115), BUN (24), Na (136) Meds Noted: [place], Colace, Zofran, Roxicodone, Miralax Additional Notes: No documented pressure ulcers. Will continue to monitor with same goal. Nutrition Monitoring and Evaluation: Follow up in 7 days.
--- NOTE | 2019-11-03 13:34 | WPDNEURORHBP ---
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 he gets good report from the nursing and occupational therapist and also the physical therapist denies any headache nausea vomiting chest pain shortness of breath fever chills sore throat Review of Systems Review of Systems: All systems reviewed & are unremarkable except as noted in HPI and below Functional Status Ambulation Ability Ability to Ambulate 10 Feet: Standby Assistance Ambulation Assistive Devices: Parallel Bars Transfers Ability Ability to Transfer In/Out of Chair: Independent Exam Const: General: comfortable and no acute distress HENMT: General nose exam: Normal nares present Mouth: Yes moist mucous membranes Eyes: General: appearance normal, both eyes and all related structures Neck: Neck: supple and no JVD Resp: Effort & Inspection: normal respiratory effort Auscultation: clear to auscultation bilaterally Cardio: Rate: regular rate Rhythm: regular rhythm GI: GI Palp: Yes Soft to palpation Auscultation: normal bowel sounds Skin: General skin exam: normal color and no rashes or lesions noted Neuro: Other: neurological examination is fairly decent except the fact that he does have what looks like a entrapment neuropathy because of the fractures in the forearm and the post surgery his finger movements in the right hand are improving however the sensory deficit to roughly is about the same on the dorsal aspect of the right hand and the right thumb Extrem: Other: right upper extremity the hard splint on the incision from the surgery are clean Psych: Mental Status: mental status grossly normal Objective Data Vital Signs Vital Signs: Vital Signs - 24 hr 11/02/19 14:00 11/02/19 20:30 11/02/19 22:00 Temperature 36.5 C 36.8 C Pulse Rate 94 94 85 Respiratory Rate 20 20 16 Blood Pressure 113/67 117/67 Pulse Oximetry 100 100 99 11/03/19 06:00 11/03/19 08:30 Temperature 36.4 C Pulse Rate 74 76 Respiratory Rate 16 16 Blood Pressure 125/76 Pulse Oximetry 100 100 Intake/Output Intake/Output: Intake & Output 10/31/19 11/01/19 11/02/19 11/03/19 23:59 23:59 23:59 23:59 Intake Total 840 360 880 360 Balance 840 360 880 360 Meds/Results Medications: Active Medications Generic Name Dose Route Start Last Admin Trade Name Freq PRN Reason Stop Dose Admin Hydrocodone Bitart/Acetaminophen 1 tab 10/22/19 08:07 10/23/19 14:41 [place] 7.5-325 Mg PO 1 tab Q4H PRN Administration Pain Rated 7-10 Docusate Sodium 100 mg 10/31/19 17:00 11/03/19 08:20 Colace Capsule PO 100 mg BID BASILIO Administration Enoxaparin Sodium 40 mg 10/21/19 09:00 11/03/19 08:21 Lovenox SUB-Q 11/17/19 09:01 40 mg DAILY BASILIO Administration Lidocaine 3 patch 10/21/19 09:00 11/03/19 08:19 Lidoderm TOPICAL 11/19/19 09:01 3 patch DAILY BASILIO Administration Methocarbamol 1,000 mg 10/21/19 13:00 11/03/19 12:12 Robaxin PO 11/04/19 06:01 1,000 mg Q6HR BASILIO Administration Naproxen 250 mg 10/22/19 17:00 11/03/19 08:20 Naproxen PO 250 mg BIDWM BASILIO Administration Ondansetron HCl 4 mg 10/20/19 17:42 10/22/19 05:12 Zofran Odt PO 4 mg Q8H PRN Administration Nausea Oxycodone HCl 10 mg 10/21/19 13:00 11/03/19 12:16 Roxicodone Ir Tablet PO 10 mg Q6HR BASILIO Administration Polyethylene Glycol 17 gm 10/22/19 19:00 10/23/19 12:05 Miralax PO 17 gm QAM PRN Administration Constipation Tamsulosin HCl 0.4 mg 10/21/19 09:00 11/03/19 08:20 Flomax PO 11/19/19 09:01 0.4 mg DAILY BASILIO Administration Progress Note: A&P Assessment and Plan (1) Concussion: Code(s): S06.0X9A - Concussion with loss of consciousness of unspecified duration, initial encounter Status: Acute (2) Pubic ramus fra
--- NOTE | 2019-11-03 13:41 | PC.NURSE ---
Contacted Dr. Mensah's (patient's surgeon) office regarding wound care. Unwritten orders to apply steri strips if necessary and leave wound open to air. No dressing necessary unless there is drainage. No drainage, redness or pain has been noted since suture removal.
[2019-11-03 14:00] VITALS: BP 134/80; PULSE 80; RESP 18; TEMP 36.2; O2SAT 100
[2019-11-03] MEDS: ONDANSETRON HCL ODT 4 MG TABLET PO (14:14)
[2019-11-03 22:00] VITALS: BP 134/80; PULSE 80; RESP 18; TEMP 36.2; O2SAT 100
[2019-11-04] MEDS: methocarbamoL 500 MG TABLET 1000 MG PO ×2 (00:11→06:03)
[2019-11-04 04:36] LABS: Basophils Absolute Auto 0.1 K/mm3 (0.0-0.1); Basophils Percent Auto 0.7 % (0.2-1.2); Eosinophils Absolute Auto 0.5 K/mm3 (0-0.3); Eosinophils Percent Auto 7.7 % (0-4.4); Hematocrit 29.9 % (42.0-52.0); Immature Granulocyte Absolute 0.08 K/mm3 (0.00-0.031); Immature Granulocyte Percent A 1.1 % (0-0.5); Lymphocytes Absolute Auto 1.85 K/mm3 (0.9-3.2); Lymphocytes Percent Auto 26.4 % (18.3-44.2); Mean Corpuscular HGB Conc 30.1 g/dl (32-36); Mean Corpuscular Hemoglobin 27.3 pg (26-34); Mean Corpuscular Volume 90.6 fl (80-100); Mean Platelet Volume 8.6 fl (7.4-10.4); Monocytes Absolute Auto 0.6 K/mm3 (0.1-0.6); Monocytes Percent Auto 8.3 % (2.6-8.5); Neutrophils Absolute Auto 3.9 K/mm3 (1.3-6.7); Neutrophils Percent Auto 55.8 % (45.5-73.1); Platelet Count Result 378 k/mm3 (150-375); Red Cell Distribution Width 12.7 % (11.5-14.5)
[2019-11-04 04:44] LABS: Anion Gap 6 mmol/L (8-16); Blood Urea Nitrogen 26 mg/dL (9-20); Calcium 8.7 mg/dL (8.4-10.2); Carbon Dioxide 29 mmol/L (22-30); Chloride 104 mmol/L (98-107); Estimated CRCL calculation 75 ml/min; Estimated Glomerular Filt Rate 59; Glucose 113 mg/dL (75-110); Potassium 4.7 mmol/L (3.4-5.0); Sodium 139 mmol/L (137-145)
[2019-11-04 05:03] VITALS: BP 103/69; PULSE 68; RESP 20; TEMP 36.1; O2SAT 100
[2019-11-04] MEDS: DOCUSATE SODIUM 100 MG CAPSULE PO (08:47)
[2019-11-04] MEDS: NAPROXEN 250 MG TABLET PO (08:47)
[2019-11-04] MEDS: LIDOCAINE 5% PATCH 3 PATCH TOPICAL (08:48)
[2019-11-04] MEDS: TAMSULOSIN HCL 0.4 MG CAPSULE PO (08:48)
[2019-11-04] MEDS: ENOXAPARIN 40 MG/0.4 ML SYRINGE SUB-Q (08:48)
--- NOTE | 2019-11-04 12:42 | WPDNEURORHBP ---
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 and would need follow-up with the surgeon he knows about it and has been proactive Sunni is going to be discharged today with follow-up appointment with the treating physician which is coming up soon had the probably 3rd week of October or so The patient denies any headache nausea vomiting chest pain shortness of breath fever chills sore throat Review of Systems Review of Systems: All systems reviewed & are unremarkable except as noted in HPI and below Functional Status Ambulation Ability Ability to Ambulate 10 Feet: Standby Assistance Ambulation Assistive Devices: Parallel Bars Transfers Ability Ability to Transfer In/Out of Chair: Independent Exam Const: General: comfortable and no acute distress HENMT: General nose exam: Normal nares present Mouth: Yes moist mucous membranes Eyes: General: appearance normal, both eyes and all related structures Neck: Neck: supple and no JVD Resp: Effort & Inspection: normal respiratory effort Auscultation: clear to auscultation bilaterally Cardio: Rate: regular rate Rhythm: regular rhythm GI: GI Palp: Yes Soft to palpation Auscultation: normal bowel sounds Skin: General skin exam: normal color and no rashes or lesions noted Neuro: Other: patient remains awake and alert well oriented without any trouble with his mental status or cranial the neurological deficit is the right upper extremity with the abnormal extension of the right wrist and the fingers the passive movements at the elbow and the shoulder relatively well intact reflexes in the lower extremities are preserved and he has done very well with the transfers in spite of the fact that he has toe-touch weight-bearing on the left lower extremity because of the sacral pubic fractures Extrem: Other: the extension of the right wrist and the fingers is limited most likely directly related to entrapment neuropathy related to the fractures as mentioned in the initial history and physical examination and also of follow-up note Psych: Mental Status: mental status grossly normal Objective Data Vital Signs Vital Signs: Vital Signs - 24 hr 11/03/19 14:00 11/03/19 22:00 11/04/19 05:03 Temperature 36.2 C L 36.2 C L 36.1 C L Pulse Rate 80 80 68 Respiratory Rate 18 18 20 Blood Pressure 134/80 134/80 103/69 Pulse Oximetry 100 100 100 Intake/Output Intake/Output: Intake & Output 11/01/19 11/02/19 11/03/19 11/04/19 23:59 23:59 23:59 23:59 Intake Total 360 880 840 240 Balance 360 880 840 240 Meds/Results Medications: Active Medications Generic Name Dose Route Start Last Admin Trade Name Freq PRN Reason Stop Dose Admin Hydrocodone Bitart/Acetaminophen 1 tab 10/22/19 08:07 11/03/19 14:02 [place] 7.5-325 Mg PO 1 tab Q4H PRN Administration Pain Rated 7-10 Docusate Sodium 100 mg 10/31/19 17:00 11/04/19 08:47 Colace Capsule PO 100 mg BID BASILIO Administration Enoxaparin Sodium 40 mg 10/21/19 09:00 11/04/19 08:48 Lovenox SUB-Q 11/17/19 09:01 40 mg DAILY BASILIO Administration Lidocaine 3 patch 10/21/19 09:00 11/04/19 08:48 Lidoderm TOPICAL 11/19/19 09:01 3 patch DAILY BASILIO Administration Naproxen 250 mg 10/22/19 17:00 11/04/19 08:47 Naproxen PO 250 mg BIDWM BASILIO Administration Ondansetron HCl 4 mg 10/20/19 17:42 11/03/19 14:14 Zofran Odt PO 4 mg Q8H PRN Administration Nausea Oxycodone HCl 10 mg 10/21/19 13:00 11/04/19 12:42 Roxicodone Ir Tablet PO 10 mg Q6HR S
--- NOTE | 2019-11-06 12:13 | PM.DS ---
DS: Admitting Diagnosis Admitting Diagnosis Admitting Diagnosis: [facility] DS: Discharge Diagnosis Discharge Diagnosis (1) Entrapment neuropathy: Code(s): G58.9 - Mononeuropathy, unspecified Status: Acute (2) Concussion: Code(s): S06.0X9A - Concussion with loss of consciousness of unspecified duration, initial encounter Status: Acute (3) Pubic ramus fracture: Code(s): S32.599A - Other specified fracture of unspecified pubis, initial encounter for closed fracture Status: Acute (4) Sacral fracture: Code(s): S32.10XA - Unspecified fracture of sacrum, initial encounter for closed fracture Status: Acute (5) Status post fall: Code(s): Z91.81 - History of falling Status: Acute (6) Pulmonary contusion: Code(s): S27.329A - Contusion of lung, unspecified, initial encounter Status: Acute (7) Multiple rib fractures: Code(s): S22.49XA - Multiple fractures of ribs, unspecified side, initial encounter for closed fracture Status: Acute (8) Right humeral fracture: Code(s): S42.301A - Unspecified fracture of shaft of humerus, right arm, initial encounter for closed fracture Status: Acute (9) Fracture of right distal radius: Code(s): S52.501A - Unspecified fracture of the lower end of right radius, initial encounter for closed fracture Status: Acute DS: Summary Hospital Course Reason for hospitalization: this pleasant 49-year-old was admitted status post fall as it has been detailed in my history and physical examination with multiple fractures received the aggressive physical therapy occupational therapy and gait training and medical management of his underlying issues along with DVT prophylaxis he did remarkably well and was very cooperative during the therapy and was satisfied with the regimen we gave him he was able to achieve the following independent measures in spite of the fact that he was nonweightbearing on the right upper extremity and nonweightbearing of the left lower extremity with only tiptoe or toe-touch walking on the left lower extremity Hospital Course: he received aggressive physical therapy along with pain management due to multiple fracture and was able to achieved the following independent measures Eating independent, oral hygiene independent, toileting independent, bathing partial assistance, upper body dressing independent, lower body dressing sparse shell assistance, footwear independent, rolling in bed supervision, sitting to lying supervision, lying to sitting supervision, sit to stand independent, chair transfers independent, toilet transfers independent, car transfers independent, walking 10 feet dependent, walking 50 feet with 2 turns patient unable to, walking 150 feet patient unable to walking 10 feet uneven surfaces patient unable to, carbon or setup patient unable to 4 steps patient unable to 12 steps patient unable to be Mary Ellen of objects supervision wheelchair 50 feet independent and wheelchair 150 feet independent Patient was able to be sent home with home health to follow with the care of his father and a sister no falls were recorded during the course of hospitalization Time Spent with Patient Time attestation: Total time spent providing and/or coordinating discharge services: Exam Const: General: comfortable and no acute distress HENMT: General nose exam: Normal nares present Mouth: Yes dry mucous membranes Eyes: General: appearance normal, both eyes and all related structures Neck: Neck: supple and no JVD Resp: Effort & Inspection: normal respiratory effort Auscultation: clear to auscultation bilaterally Cardio: Rate: regular rate Rhythm: regular rhythm GI: GI Palp: Yes Soft to palpation Auscultation: normal bowel sounds Skin: General skin exam: normal color and no rashes or lesions noted Neuro: Other: patient remained awake alert well oriented without any trouble with his speech and language fun
== END 2019-11-04 13:30 | disposition home health service (06) | DRG 561 ==
PROVIDERS: Admitting Provider Psychiatry & Neurology Neurology; Visit Provider Psychiatry & Neurology Neurology
DX: S32.10XD Unspecified fracture of sacrum, subsequent encounter for fracture with routine healing (principal); S32.592D Other specified fracture of left pubis, subsequent encounter for fracture with routine healing; S06.9X1D Unspecified intracranial injury with loss of consciousness of 30 minutes or less, subsequent encounter; S27.321D Contusion of lung, unilateral, subsequent encounter; S22.41XD Multiple fractures of ribs, right side, subsequent encounter for fracture with routine healing; S52.591D Other fractures of lower end of right radius, subsequent encounter for closed fracture with routine healing; S52.611D Displaced fracture of right ulna styloid process, subsequent encounter for closed fracture with routine healing; S42.351D Displaced comminuted fracture of shaft of humerus, right arm, subsequent encounter for fracture with routine healing; R06.89 Other abnormalities of breathing; R33.9 Retention of urine, unspecified; W11.XXXD Fall on and from ladder, subsequent encounter; G58.8 Other specified mononeuropathies
CPT/HCPCS: 36415; 80048; 81003; 85025; 97110; 97116; 97162; 97166; 97530; 97535; 97542; A9270; J1650

== ENCOUNTER 2020-03-14 13:30 | Outpatient (RCR) | payer BC, SELFPAY ==
--- NOTE | 2019-12-17 10:01 | OTOPEVAL ---
OCCUPATIONAL THERAPY EVALUATION REPORT 12/17/2019 Thank you for referring Aleks Carpio to [facility] [place].? The patient is scheduled to be seen for therapy? 2x/week for 6 weeks. Please review, sign, date and return this plan of care NORM. I agree with and certify that the following plan of care is medically necessary. Referring Physician Date Admitting Provider: Attending Provider: Romaine Mensah, Referring Provider: *OT Outpatient Evaluation Start: 12/17/19 08:36 Therapy Assessment Status Assessment Status Assessment Status Evaluation Outpatient Past Medical History Neurological History Hx Neurological Disorders No Significant History Cardiovascular History Hx Cardiac Disorders No Significant History Respiratory History Hx Respiratory Disorders No Significant History Gastrointestinal History Hx Gastrointestinal Disorders No Significant History Genitourinary History Hx Genitourinary Disorders No Significant History Musculoskeletal History Hx Arthritis Yes Hx Back Pain Yes: lower back d/t occupation Hx Orthopedic Surgery Yes: lateral epicondylitis, rt radius fx, rt humerus, rt ribs 4-7, pubic ramis f Hematological History Hx Other Hematological Disorders Yes: received one unit PRBC's on 10/19/19 Endocrine History Hx Endocrine Disorders No Significant History HEENT History Hx HEENT Disorders No Significant History Integumentary History Hx Skin Disorders No Significant History Reproductive History Hx Reproductive Disorders No Significant History Psychosocial History Hx Psychiatric Disorders No Significant History Pain History Has Past Pain Affected Your Daily Life Yes: uses meds for back pain infrequently Anesthesia History Hx Other Anesthesia Reactions Yes: morphine was not agreeable in past Evaluation Information Problem Diagnosis Right distal radius and right humerus fracture Onset 10/14/19 Cause Fall from tree Additional Evaluation Detail ORIF of both DRF and humeral fracture 10/16/19 Inpatient rehab 10/20-11/03, d/c to aunt's home with home health OT/PT x1 month, then returned home alone about 1-2 weeks ago. Patient has wrist drop and evident signs of radial nerve palsy. He states he is following up with a software engineering specialist , but does not have a
--- NOTE | 2019-12-17 11:50 | PTOPEVAL ---
Thank you for referring Aleks Carpio to [facility].? The patient is scheduled to be seen for therapy? 2 x/week for 3 weeks. Please review, sign, date and return this plan of care NORM. I agree with and certify that the following plan of care is medically necessary. Referring Physician Date Attending Provider: Romaine Mensah, Referring Provider: *PT Outpatient Evaluation Start: 12/17/19 10:16 Freq: Status: Active Protocol: Document 12/17/19 10:18 SHAI (Rec: 12/17/19 11:29 SHAI [id number]) Therapy Assessment Status Assessment Status Assessment Status Evaluation Outpatient Past Medical History Past Medical History Source of Past Medical History Patient,Recalled from Previous Visit, Confirmed with Patient /Family Neurological History Hx Neurological Disorders No Significant History Cardiovascular History Hx Cardiac Disorders No Significant History Respiratory History Hx Respiratory Disorders No Significant History Gastrointestinal History Hx Gastrointestinal Disorders No Significant History Genitourinary History Hx Genitourinary Disorders No Significant History Musculoskeletal History Hx Arthritis Yes Hx Back Pain Yes: lower back d/t occupation Hx Orthopedic Surgery Yes: lateral epicondylitis, rt radius fx, rt humerus, rt ribs 4-7, pubic ramis f Hematological History Hx Other Hematological Disorders Yes: received one unit PRBC's on 10/19/19 Endocrine History Hx Endocrine Disorders No Significant History HEENT History Hx HEENT Disorders No Significant History Integumentary History Hx Skin Disorders No Significant History Reproductive History Hx Reproductive Disorders No Significant History Psychosocial History Hx Psychiatric Disorders No Significant History Pain History Has Past Pain Affected Your Daily Life Yes: uses meds for back pain infrequently Anesthesia History Hx Other Anesthesia Reactions Yes: morphine was not agreeable in past Evaluation Information Problem Diagnosis Right distal radius, right humerus fracture, sacral and pubic rami fracture Onset 10/14/19 Cause Fall from tree Additional Evaluation Detail ORIF of both DRF and humeral fracture 10/16/19 Inpatient rehab 10/20-11/03, d/c to aunt's home with home health OT/PT x1 month, then returned home alone about 1-2
--- NOTE | 2020-01-04 10:32 | PCPTNOTE ---
Admitting Provider: Attending Provider: Romaine Mensah, Patient:Aleks Carpio Date of :1970 Physical Therapy Progress Note Patient has been seen for 6 physical therapy visits from 12/17/2019 to 01/04/20. He demonstrates progress with functional mobility, walking speed, leg strength and LE pain level. He is indep with a HEP for strengthening his LE's. The PT goals for LE and standing functional task have been achieved at this time. Based on LE functional gains, will focus physical therapy on his right shoulder impairments of shoulder range, strength and soft tissue restriction to improve UE function with daily task. Cont PT 2-3x/wk x 8 wks to improved UE impairments. Thank you for referring this patient to [facility]. Please review, sign, date and return this discharge summary NORM. I have been updated about the patient's current status and I agree with discharge from the above service at this time. Referring Physician Date
[2020-01-26 09:10] VITALS: BP_SYST 90
--- NOTE | 2020-01-26 10:05 | OTOPEVAL ---
OCCUPATIONAL THERAPY RE-EVALUATION REPORT 01/26/2020 Thank you for referring Aleks Carpio to [facility].? The patient is scheduled to be seen for continued occupational therapy? 2x/week for 6 weeks. Please review, sign, date and return this plan of care NORM. I agree with and certify that the following plan of care is medically necessary. Referring Physician Date Referring Provider: Romaine Mensah, MD *OT Outpatient Evaluation Evaluation Information Problem Diagnosis Right distal radius, right humerus fracture, sacral and pubic rami fracture Onset 10/14/19 Cause Fall from tree Additional Evaluation Detail ORIF of both DRF and humeral fracture 10/16/19. Aleks has participated in the initial OT evaluation and 10 subsequent tx sessions. Patient is compliant with all materials and is tolerating more aggressive therapy. Continues to have no active radial musculature distal to the elbow. Very minimal active thumb and index flexion which may be indicative of AIN injury. Subjective Information Aleks reports improvements Query Text:As Reported By Patient/ with elbow AROM, specifically Family with extension and active supination. With gains in elbow extension he no longer walks with the elbow flexed at his side causing more stiffness into elbow flexion. He reports improved ROM and less stiffness in the wrist and in the MCP joints of digits II-V. 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 He has been following up with a helpdesk specialist MD who has been ordering nerve conduction studies and is considering looking at surgery for median nerve transfer to radial nerve. Елена
--- NOTE | 2020-01-26 12:57 | PTOPEVAL ---
Thank you for referring Aleks Carpio to [facility].? The patient is scheduled to be seen for therapy? 2x/week for 6 weeks. Please review, sign, date and return this plan of care NORM. I agree with and certify that the following plan of care is medically necessary. Referring Physician Date Attending Provider: Romaine Mensah, MD Referring Provider: *PT Outpatient Evaluation Start: 12/17/19 10:16 Freq: Status: Active Protocol: Document 01/26/20 09:10 SHAI (Rec: 01/26/20 10:01 SHAI [id number]) Therapy Assessment Status Assessment Status Re-evaluation Evaluation Information Problem Diagnosis Right distal radius, right humerus fracture, sacral and pubic rami fracture Onset 10/14/19 Cause Fall from tree Additional Evaluation Detail ORIF of both DRF and humeral fracture 10/16/19. Continues to have no active radial musculature distal to the elbow. Very minimal active thumb and index flexion which may be indicative of AIN compression or palsy. He continues to wear a wrist cock up splint due to having wrist drop since the injury Subjective Information He denies any specific Query Text:As Reported By Patient/ limitations with his LE's or Family his walking. There is also question of injury of the nerve from the neck region. He reports the radial nerve palsy has remained unchanged since start of care. He has been following up with a holistic specialist MD who has been ordering nerve conduction studies and is considering looking at surgery for median nerve transfer to radial nerve. Limitations include being unable to hold anything in the right hand. He cont to report significant pain and limitations with function of right hand, elbow and shoulder. He is not performing his shoulder exercises except 1x
--- NOTE | 2020-03-10 14:44 | PTOPEVAL ---
Thank you for referring Aleks Carpio to [facility].?Pt has been seen for 21 physical therapy visits to address pelvic, leg and right shoulder impairments. PT services has been focus on shoulder limitations for 14 therapy visits. As a result of skilled therapy he demonstrates improved right shoulder range, right shoulder and scapular strength, and improved pain and tissue restrictions. He is independent with his HEP. Please see note below for detailed information on objective measures. Pt has achieved his therapy goals at this time. Pt has reached maximal potential with skilled physical therapy services at this time for addressing his shoulder limitations. Will DC skilled PT services at this time. Please review, sign, date and return this plan of care NORM. I agree with and certify that the following plan of care is medically necessary. Referring Physician Date Attending Provider: Romaine Mensah, CC: Dr. Lorrie Ny [facility] *PT Outpatient Evaluation Start: 12/17/19 10:16 Freq: Status: Active Protocol: Document 03/10/20 10:00 CAP (Rec: 03/10/20 10:43 [facility] [id number]) Therapy Assessment Status Assessment Status Assessment Status Re-evaluation Outpatient Past Medical History Past Medical History Source of Past Medical History Patient,Recalled from Previous Visit, Confirmed with Patient /Family Neurological History Hx Neurological Disorders No Significant History Cardiovascular History Hx Cardiac Disorders No Significant History Respiratory History Hx Respiratory Disorders No Significant History Gastrointestinal History Hx Gastrointestinal Disorders No Significant History Genitourinary History Hx Genitourinary Disorders No Significant History Musculoskeletal History Hx Arthritis Yes Hx Back Pain Yes: lower back d/t occupation Hx Orthopedic Surgery Yes: lateral epicondylitis, rt radius fx, rt humerus, rt ribs 4-7, pubic ramis f Hematological History Hx Other Hematological Disorders Yes: received one unit PRBC's on 10/19/19 Endocrine History Hx Endocrine Disorders No Significant History HEENT History Hx HEENT Disorders No Significant History Integumentary History Hx Skin Disorders No Significant History Reproductive History Hx Reproductive Disorders No Significant History Psychosocial History Hx Psychiatric Disorders No Significant History Pain History Has Past Pain Affected Your Daily Life Yes: uses meds for back pain infrequently Anesthesia History Hx Other Anesthesia Reactions Yes: morphine was not agreeable in past Evaluation Information Problem Diagnosis Right distal radius, right humerus fracture, sacral and
--- NOTE | 2020-03-10 15:07 | OTOPEVAL ---
OCCUPATIONAL THERAPY EVALUATION REPORT 03/10/20 Thank you for referring Aleks Carpio to [facility].? The patient is scheduled to be seen for continued occupational therapy? 2x/week for 6 weeks. Please review, sign, date and return this plan of care NORM. I agree with and certify that the following plan of care is medically necessary. Referring Physician Date Referring Provider: Romaine Mensah, MD Per patient request, please also CC: Dr. Lorrie Coats, [facility], Department of Surgery [place] *OT Outpatient Evaluation Evaluation Information Problem Diagnosis Right distal radius, right humerus fracture, sacral and pubic rami fracture Onset 10/14/19 Cause Fall from tree Additional Evaluation Detail ORIF of both DRF and humeral fracture 10/16/19. Right radial nerve palsy - being followed by Dr. Gonzales at [facility] Today is his 2nd re-eval, 12 total weeks of OT Subjective Information Aleks reports that he has been Query Text:As Reported By Patient/ trying to use the right hand Family as much as possible. Noted improvements with his ability to hold a grocery bag, hold handle of a frying luna while cooking, and using the right hand to pinch and pull up his pants. He was unable to do any of these tasks at the last re -evaluation. Pain Assessment Timing of Pain Assessment Timing of Pain Assessment Re-assessment Pain Scale Pain Scale Used Numeric (1 - 10) Self Report Pain Assessment Right Elbow(s) Reported Pain Level 0 Lowest Pain Intensity 0 Greatest Pain Intensity 0 Additional Pain Comments Pt reports no longer having sharp/tingling pain in the elbow. Right Wrist(s) Reported Pain Level 0 Lowest Pain Intensity 0 Greatest Pain Intensity 3 Other Pain Aggravating Factors PROM Pain Score Pain Score 0,0: Self Report Interventions Used Interventions Used By Clinicians Education Upper Extremity Range of Motion Elbow/Forearm Range of Motion Right Elbow Flexion - Active 135 Elbow Extension - Active 0 Forearm Supination - Active 40 Forearm Supination - Passive 55 Forearm Pronation - Active 90 Elbow/Forearm Range of Motion Comments -Elbow flex/ext returned to normal limits. -Active supi
--- NOTE | 2020-03-17 10:37 | PCOTNOTE ---
This treatment is being continued on visit number [id number]. Please see documentation on both accounts to view progress. Completed interventions, outcomes, and problems have been marked as Inactive to facilitate the copying of the Care plan routine for recurring accounts.
== END 2020-03-16 14:01 | disposition home or self-care (01) ==
LOC: ANHOT 13:30
PROVIDERS: Visit Provider Orthopaedic Surgery Orthopaedic Trauma
DX: S52.501D Unspecified fracture of the lower end of right radius, subsequent encounter for closed fracture with routine healing (principal); S42.301D Unspecified fracture of shaft of humerus, right arm, subsequent encounter for fracture with routine healing; S32.9XXD Fracture of unspecified parts of lumbosacral spine and pelvis, subsequent encounter for fracture with routine healing; S32.10XD Unspecified fracture of sacrum, subsequent encounter for fracture with routine healing
CPT/HCPCS: 97018; 97110; 97112; 97140; 97162; 97166; 97530; 97763; L3808

== ENCOUNTER 2020-06-13 14:15 | Outpatient (RCR) | payer BC, SELFPAY ==
[2020-03-16 14:01] VITALS: BP_SYST 90
--- NOTE | 2020-03-17 10:37 | PCOTNOTE ---
The treatment documented on this account is a continuation of the treatment documented on visit number [id number]. Please see documentation on both accounts to view progress. The Plan of Care has been transitioned and updated within the new V#. I have addressed and agree with the discipline specific Problems, Interventions, and Goals for the current certification period. Completed interventions, outcomes, and problems have been marked as Inactive to facilitate the copying of the Care plan routine for recurring accounts.
--- NOTE | 2020-04-01 12:36 | PCOTNOTE ---
Patient called & cancelled scheduled appointment this date due to his roof leaking at home.
--- NOTE | 2020-04-11 10:52 | OTOPEVAL ---
OCCUPATIONAL THERAPY RE-EVALUATION REPORT 04/11/20 Patient presents today after 16 weeks of OT on the right UE following several fractures, which treatment was complicated by radial nerve palsy. Since the start of care, Aleks has made improvements with active wrist extension (measuring at 30* this date). Supination has appeared to plateau at ~35*. There have been no signs of active finger or thumb extension. He has been wearing the radial nerve palsy splint to help with functional use. He is currently independent with ROM and strengthening HEP. At this time he is scheduled for a nerve transfer surgery on 04/12/20. Plan to put patient's care on hold until further orders are received to resume OT. Thank you for referring Aleks Carpio to [facility].? Please review, sign, date and return this Re-Evaluation Report NORM. I agree with and certify that the following plan of care is medically necessary. Referring Physician Date Referring Provider: Romaine Mensah, Per patent request, please also CC: Dr. Lorrie Coats, [facility], Department of Surgery [place], [place] *OT Outpatient Re-Evaluation Problem Diagnosis Right distal radius, right humerus fracture, sacral and pubic rami fracture Onset 10/14/19 Cause Fall from tree Additional Evaluation Detail ORIF of both DRF and humeral fracture 10/16/19. Today is his OT 3rd re-eval, 16 total weeks of therapy. Right radial nerve palsy. He is to have median to radial nerve transfer surgery tomorrow 04/[address] at [facility]. Subjective Information Aleks reports that he has been Query Text:As Reported By Patient/ trying to use the right hand Family as much as possible. Noted improvements with his ability to use his right hand in the shower, to start his car, and to shift his car. He has been using [employer] radial nerve palsy splint ~3 weeks. Pain Assessment Timing of Pain Assessment Timing of Pain Assessment Re-assessment Pain Scale Pain Scale Used Numeric (1 - 10) Self Report Pain Assessment Right Wrist(s) Reported Pain Level 1 Pain Description Tightness Other Pain Description My whole arm feels tight Lowest Pain Intensity 0 Greatest Pain Intensity 5 Other Pain Aggravating Factors Shoveling the snow Pain Score Pain Score 1: Self Report Interventions Used Interventions Used By Clinicians Exercise Upper Extremity Range of Motion Elbow/Forearm Range of Motion
--- NOTE | 2020-05-06 11:18 | OTOPEVAL ---
OCCUPATIONAL THERAPY RE-EVALUATION REPORT Patient's therapy was on hold x3 weeks due to patient having radial tunnel release and radial nerve transfer surgery on 04/13/20. Progress since his last re-assessment on 04/11/20, noting new ability to extend the thumb and fingers. Skilled OT indicated to progress functional therapeutic strengthening exercise to PIN innervated muscles, scar management, edema management, and manual therapy for forearm and wrist stiffness that was exacerbated from this period of immobilization after surgery. Thank you for referring Aleks Carpio to [facility].? The patient is scheduled to be seen for therapy?1-2x/week for 6 weeks. Plan to taper down therapy frequency as patient progresses. Please review, sign, date and return this Reassessment Report NORM. I agree with and certify that the following plan of care is medically necessary. Referring Physician Date Referring Provider: SERG ESPINO MD *OT Outpatient Re-Evaluation Evaluation Information Problem Diagnosis Right distal radius, right humerus fracture Onset 10/14/19 Cause Fall from tree Additional Evaluation Detail ORIF of both DRF and humeral fracture 10/16/19. 04/13/20: right PIN decompression through arcade of [place], full tenotomy of ECRB, release of the superficial head of the supinator, and nerve transfer: radial nerve branch to the PIN Subjective Information Aleks reports that since his Query Text:As Reported By Patient/ surgery he has been able to Family use the right arm/hand to drive his stick shift car, hold a glass, pinching and pulling pants up, getting items out of his pocket with the right hand. He has been taking it easy regarding ROM due to restrictions following nerve procedure, so he does report some increased stiffness. Pain Assessment Timing of Pain Assessment Timing of Pain Assessment Re-assessment Self Report Self Report Pain Level 0 Pain Score Pain Score 0: Self Report Upper Extremity Range of Motion Elbow/Forearm Range of Motion Right Elbow Flexion - Active 135 Elbow Extension - Active 0 Forearm Supination - Active 35 Forearm Pronation - Passive 90 Wrist Range of Motion Right Wrist Extension - Active 30 Wrist Radial Deviation - Active 18 Wrist Ulnar Deviation - Active 15 Finger Range of Motion Right I
[2020-05-17 10:03] VITALS: BP_SYST 120
--- NOTE | 2020-05-17 11:33 | PTOPEVAL ---
Thank you for referring Aleks Carpio to [facility].? The patient is scheduled to be seen for therapy 2x/week for 5 weeks. Please review, sign, date and return this plan of care NORM. I agree with and certify that the following plan of care is medically necessary. Referring Physician Date Attending Provider: Romaine Mensah, MD Referring Provider: Dr. Raymond Junior MD Physical Therapy Evaluation Problem Diagnosis right humerus pain Additional Evaluation Detail No restriction on right arm as of 05/20/20. Subjective Information He reports his hand is doing Query Text:As Reported By Patient/ better since his surgery. He Family has lost wrist motion due to immobilization. Denies any limitations with the right elbow. States the upper arm feels like it is constantly tight. He feels like his right arm is waking up with heaviness . He continues to report limitations with abduction and rotation. He is stretching the shoulder daily. He feels the capsule remains tight. States the last x-ray showed continued bone growth of the humerus. Pain Assessment Self Report Pain Assessment Right Upper Arm(s) Reported Pain Level 0 Upper Extremity Range of Motion Scapular/ Shoulder Range of Motion Right Scapular: Retraction Hypomobile Scapular Downward Rotation Hypomobile Scapular Upward Rotation Hypermobile Shoulder Flexion - Active 160 Shoulder Extension - Active 32 Shoulder Abduction - Active 115 Shoulder Abduction - Passive 120 Shoulder Medial Rotation - Active 45 Shoulder Medial Rotation - Active right glut Query Text:Reach Behind the Back Shoulder Lateral Rotation - Active 25 Shoulder Lateral Rotation - Active C6 Query Text:Reach Behind the Head Scapular/Shoulder Range of Motion Muscle Weakness,Soft Tissue Limitations Restriction Scapular/Shoulder Range of Motion decreased inferior GH glide, Comments excessive protraction supine flex: 155 with decreased substitution, increased pain rotation measured supine with GH abduction 80 deg Upper Extremity Muscle Strength Testing Scapular/Shoulder Left Scapular Retraction - Rhomboid 3 Fair Scapular Retraction - Middle Trapezius 3 Fair Scapular Retraction
--- NOTE | 2020-06-15 07:44 | PCOTNOTE ---
This treatment is being continued on visit number [id number]. Please see documentation on both accounts to view progress. Completed interventions, outcomes, and problems have been marked as Inactive to facilitate the copying of the Care plan routine for recurring accounts.
== END 2020-06-14 14:49 | disposition home or self-care (01) ==
LOC: ANHPT 14:15
PROVIDERS: Visit Provider Orthopaedic Surgery Orthopaedic Trauma
DX: S52.501D Unspecified fracture of the lower end of right radius, subsequent encounter for closed fracture with routine healing (principal); S42.301D Unspecified fracture of shaft of humerus, right arm, subsequent encounter for fracture with routine healing; S32.9XXD Fracture of unspecified parts of lumbosacral spine and pelvis, subsequent encounter for fracture with routine healing; S32.10XD Unspecified fracture of sacrum, subsequent encounter for fracture with routine healing
CPT/HCPCS: 97018; 97110; 97140; 97162; 97530; 97760; 97763

== ENCOUNTER 2020-07-26 09:00 | Outpatient (RCR) | payer BC, SELFPAY ==
[2020-06-14 14:49] VITALS: BP_SYST 120
--- NOTE | 2020-06-15 07:45 | PCOTNOTE ---
The treatment documented on this account is a continuation of the treatment documented on visit number [id number]. Please see documentation on both accounts to view progress. The Plan of Care has been transitioned and updated within the new V#. I have addressed and agree with the discipline specific Problems, Interventions, and Goals for the current certification period. Completed interventions, outcomes, and problems have been marked as Inactive to facilitate the copying of the Care plan routine for recurring accounts.
--- NOTE | 2020-06-15 09:55 | OTOPEVAL ---
OCCUPATIONAL THERAPY RE-EVALUATION REPORT 06/15/20 Thank you for referring Aleks Carpio to [facility].? The patient is scheduled to be seen for continued therapy? 1x/week for 6 weeks. Please review, sign, date and return this plan of care NORM. I agree with and certify that the following plan of care is medically necessary. Referring Physician Date Referring Provider: Lorrie Gonzales MD Per patient request, please also CC: [place], [place] *OT Outpatient Evaluation Start: 06/15/20 08:03 Evaluation Information Problem Diagnosis Right distal radius, right humerus fracture Onset 10/14/19 Cause Fall from tree Additional Evaluation Detail 04/13/20: right PIN decompression through arcade of [place], full tenotomy of ECRB, release of the superficial head of the supinator, and nerve transfer: radial nerve branch to the PIN . Subjective Information Patient reports improvements Query Text:As Reported By Patient/ in the past 6 weeks with Family bathing, noting the ability to use the right hand to wash his hair and to wash the left armpit now as well as holding/ using a toothbrush in the right hand. He reports improved ability with using the arm (instead of his whole body) to shift his car. Fine motor, improvements noted with writing/signing his name and typing. Limitations include any heavy lifting, patient notes difficulty with lifting objects > 5 lbs. noting the inability to lift a 10 lb. weight. Also he notes continued wrist stiffness that limits his ability to feed himself with a fork/spoon and comb his hair. Reports nerve pain and irritation in the radial sensory distribution of the right hand. Pain Assessment Timing of Pain Assessment Timing of Pain Assessment Re-assessment Pain Scale Pain Scale Used Numeric (1 - 10) Self Report Pain Assessment Right Wrist(s) Reported Pain Level 1 Pain Descrip
--- NOTE | 2020-06-21 09:45 | PTOPEVAL ---
Thank you for referring Aleks Carpio to [facility].? Aleks has been seen for 9 therapy visits to address right shoulder impairments. He demonstrates normal shoulder motion without increased pain. He has improved shoulder and scapular strength. He has reached maximal potential with skilled therapy services at this time with goals achieved. Will D/C skilled PT services at this time. Please review, sign, date and return this discharge summary NORM. I agree with and certify that the following plan of care is medically necessary. Referring Physician Date Attending Provider: Romaine Mensah, Referring Provider: Raymond Junior MD Physical Therapy Discharge Note Diagnosis Right distal radius, right humerus fracture Onset 10/14/19 Cause Fall from tree Additional Evaluation Detail 04/13/20: right PIN decompression through arcade of [place], full tenotomy of ECRB, release of the superficial head of the supinator, and nerve transfer: radial nerve branch to the PIN. Subjective Information Denies any tightness of right Query Text:As Reported By Patient/ shoulder. States he does cont Family to have heaviness of the right UE when he lets his trap muscles relax. He reports improved shoulder motion without limitations. He reports limitations with heavier/more intense activities. He is performing strengthening 4-5x/wk [ End ] Pain Assessment Self Report Pain Assessment Right Shoulder(s) Reported Pain Level 0 Lowest Pain Intensity 0 Greatest Pain Intensity 0 Upper Extremity Range of Motion Scapular/ Shoulder Range of Motion Right Shoulder Flexion - Active 172 Shoulder Extension - Active 42 Shoulder Abduction - Active 170 Shoulder Medial Rotation - Active 75 Shoulder Medial Rotation - Active T11 Query Text:Reach Behind the Back Shoulder Lateral Rotation - Active 70 Shoulder Lateral Rotation - Active C6 Query Text:Reach Behind the Head Scapular/Shoulder Range of Motion ROTATION MEASURE SUPINE WITH Comments GH JOINT ABDUCTION 90 DG Upper Extremity Muscle Strength Testing Scapular/Shoulder Right Scapular Retraction - Middle Trapezius 4 Good Scapular Retraction - Lower Trapezius 3+ Fair + Shoulder Flexion Strength 4 Good Shoulder Extension Strength 4+ Good + Shoulder Abduction Strength 4 Good Shoulder Medial Rotation Strength 3+ Fair +
--- NOTE | 2020-07-26 10:24 | OTOPEVAL ---
OCCUPATIONAL THERAPY RE-EVALUATION 07/26/20 Patient presents today for 6th OT re-evaluation since beginning therapy 12/17/19. Today thomson the first functional progress plateau since the start of care, specifically with ROM and stiffness in the forearm and wrist. At this time the patient's strength is well within functional limits and he is independent with all strengthening HEPs. Unfortunately the wrist has actually declined with ROM and decreased tolerance to stretch and use, which has limited his ability with feeding, shaving, lifting, and carrying objects in his right, dominant UE. Despite this decline, he has been tolerating aggressive passive ROM/stretching as well as strengthening to the wrist, but with limited functional carryover. Recommend that the patient continue to diligently complete his HEP and follow up with therapy in 6 weeks. Therapy follow-up/reassess in 6 weeks is recommended to assess need for HEP progression. Thank you for referring Aleks Carpio to [facility].? The patient is scheduled to be seen for re-assessment on 09/06/20. Please review, sign, date and return this plan of care NORM. I agree with and certify that the following plan of care is medically necessary. Referring Physician Date Referring Provider: Lorrie Gonzales MD Per patient request, please also CC: [place] *OT Outpatient Re-Evaluation Start: 06/15/20 08:03 Evaluation Information Problem Diagnosis Right distal radius, right humerus fracture Onset 10/14/19 Cause Fall from tree Additional Evaluation Detail 04/13/20: right PIN decompression through arcade of [place], full tenotomy of ECRB, release of the superficial head of the supinator, and nerve transfer: radial nerve branch to the PIN. The past 6 weeks of treatment, therapy has tapered down to 1x/week. The patient appeared to have a decline in wrist flexibility, as noted by measurements below, specifically with flexion. He typically walks into the clinic with only about 15-20* of active flexion and treatments have had to be scaled back in the past 3 weeks to the decline in flexibility. Prior to this he was tolerating more aggressive strengthening and use. Subjective Information Patient reports improved Query Text:As Reported By Patient/ ability to use the right UE to Family shift his car, hold/use a to
--- NOTE | 2020-08-17 08:08 | PCOTNOTE ---
OCCUPATIONAL THERAPY DISCHARGE NOTE 08/17/20 Patient:Aleks Carpio Date of :1970 At the last OT re-evaluation on 07/26/2020, the patient had a progress plateau with the right UE. Therapy was put on hold at that time and a follow up/reassessment was scheduled for 09/06/2020, however, the patient informed our clinic that after recent testing and MD appointments, he will be undergoing another surgery on the wrist. His chart is going to be discharged at this time and if more therapy visits are indicated post-op, please don't hesitate to send new orders. Thank you. Therapy goals have not been met. At the patient's last assessment, he was independent with all HEPs. Thank you for referring this patient to [facility]. Please review, sign, date and return this discharge summary NORM. I have been updated about the patient's current status and I agree with discharge from the above service at this time. Referring Physician Date Referring Provider: Lorrie Gonzales MD
== END 2020-08-19 08:22 | disposition home or self-care (01) ==
LOC: ANHOT 09:00
PROVIDERS: Visit Provider Orthopaedic Surgery Orthopaedic Trauma
DX: S52.501D Unspecified fracture of the lower end of right radius, subsequent encounter for closed fracture with routine healing (principal); S42.301D Unspecified fracture of shaft of humerus, right arm, subsequent encounter for fracture with routine healing; S32.9XXD Fracture of unspecified parts of lumbosacral spine and pelvis, subsequent encounter for fracture with routine healing; S32.10XD Unspecified fracture of sacrum, subsequent encounter for fracture with routine healing; G56.31 Lesion of radial nerve, right upper limb
CPT/HCPCS: 97035; 97110

== ENCOUNTER 2020-10-25 08:00 | Outpatient (RCR) | payer BC, SELFPAY ==
--- NOTE | 2020-09-23 10:53 | OTOPEVAL ---
OCCUPATIONAL THERAPY INITIAL EVALUATION 09/23/2020 Thank you for referring Aleks Carpio to [facility].? The patient is scheduled to be seen for therapy? 2x/week for 6 weeks. Please review, sign, date and return this plan of care NORM. I agree with and certify that the following plan of care is medically necessary. Referring Physician Date Referring Provider: Lorrie Gonzales MD *OT Outpatient Evaluation Start: 09/23/20 09:05 Therapy Assessment Status Assessment Status Assessment Status Evaluation Outpatient Past Medical History Neurological History Hx Neurological Disorders No Significant History Cardiovascular History Hx Cardiac Disorders No Significant History Respiratory History Hx Respiratory Disorders No Significant History Gastrointestinal History Hx Gastrointestinal Disorders No Significant History Genitourinary History Hx Genitourinary Disorders No Significant History Musculoskeletal History Hx Arthritis Yes Hx Back Pain Yes: lower back d/t occupation Hx Orthopedic Surgery Yes: lateral epicondylitis, rt radius fx, rt humerus, rt ribs 4-7, pubic ramis f Hematological History Hx Other Hematological Disorders Yes: received one unit PRBC's on 10/19/19 Endocrine History Hx Endocrine Disorders No Significant History HEENT History Hx HEENT Disorders No Significant History Integumentary History Hx Skin Disorders No Significant History Reproductive History Hx Reproductive Disorders No Significant History Psychosocial History Hx Psychiatric Disorders No Significant History Pain History Has Past Pain Affected Your Daily Life Yes: uses meds for back pain infrequently Anesthesia History Hx Other Anesthesia Reactions Yes: morphine was not agreeable in past Evaluation Information Problem Diagnosis right radial sensory nerve compression, right radial nerve palsy, CRPS Additional Evaluation Detail 08/31/20 - Tenotomy of right brachioradialis tendon and micro internal neurolysis of right radial sensory nerve with decompression of right- sided radial sensory nerve 04/13/20 - Decompression of right PIN through the arcade of [place] with full tenotomy of the ECRB and release of the superficial head of the supinator. Nerve transfer of the 2 branches of the s
--- NOTE | 2020-10-24 09:27 | OTOPEVAL ---
OCCUPATIONAL THERAPY RE-EVALUATION, PLAN OF CARE UPDATE, AND DISCHARGE NOTIFICATION 10/24/20 Aleks presents today for re-evaluation following 4 weeks of OT focusing on right UE strengthening and ROM. A comprehensive strengthening program has been issued and he has verbalized good compliance with this and reports being able to up his weight over the last 1-2 weeks. In the clinic we are using the BTE machine for strengthening and wrist CPM for flexibility. Job-specific tasks have also been incorporated into treatment sessions, such as working on scapular strengthening/stabilization, weight bearing, and crawling, as well as lifting heavy items from various heights. Plan to finish up the with the remaining 3 treatment sessions with fine-tuning his HEP and rehearsal of work specific tasks to facilitate optimal right UE function with the goal of returning to unrestricted work release after completion of therapy (d/c date: 11/03/20). Thank you for referring Aleks Carpio to [facility].? The patient is scheduled to be seen for 3 more occupational therapy visits then will be discharged for release to work. This re-assessment report will also be serving as the discharge summary. Please review, sign, date and return this plan NORM. I agree with and certify that the following plan of care is medically necessary. Referring Physician Date Referring Provider: Lorrie Gonzales MD Per patient request, please also CC: Sagrario Kimble [facility] *OT Outpatient Re-Evaluation Start: 09/23/20 09:05 Evaluation Information Problem Diagnosis right radial sensory nerve compression, right radial nerve palsy, CRPS Additional Evaluation Detail 04/13/20 - Decompression of right PIN through the arcade of [place] with full tenotomy of the ECRB and release of the superficial head of the supinator. Nerve transfer of the 2 branches of the supinator in an end-to-side fashion to the PIN and detailed micro internal neurolysis of the PIN. 08/31/20 - Tenotomy of right brachioradialis tendon and micro internal neurolysis of right radial sensory nerve with decompression of right- sided radial sensory nerve. 09/23/20 - Therapy began. He has had 8 treatment session. Subjective Information Since beginning therapy ~4 Query Text:As Reported By Patient/ weeks ago he reports Family improvement in strength, improved flexibility of the wrist, and improved functional fine motor movements in the albright
== END 2020-12-12 08:12 | disposition home or self-care (01) ==
LOC: ANHOT 08:00
DX: G56.31 Lesion of radial nerve, right upper limb (principal)
CPT/HCPCS: 97110; 97166; 97530

== ENCOUNTER 2020-11-02 13:20 | Outpatient (CLI) | payer BC, SELFPAY ==
[2020-11-02] MEDS: diphenhydrAMINE HCl CAP 25 MG CAPSULE PO (13:35)
[2020-11-02] MEDS: ACETAMINOPHEN 325 MG TABLET 650 MG PO (13:35)
[2020-11-02] MEDS: FAMOTIDINE 20 MG TABLET PO (13:35)
[2020-11-02 13:40] VITALS: BP 115/73; PULSE 71; RESP 18; TEMP 36.4; O2SAT 97
[2020-11-02 13:47] VITALS: BMI 31.2
--- NOTE | 2020-11-02 14:08 | PC.NURSE ---
2820--Patient here for IV infusion of Regeneron. C/O headache, fever, and hacky cough. Patient did not receive Covid vaccine. Pre medication given. Patient tolerated well. Education provided on Regeneron and side effects. --Tim KHAN
[2020-11-02 14:59] VITALS: BP 111/74; PULSE 53; RESP 16; TEMP 36.2; O2SAT 96
--- NOTE | 2020-11-02 15:00 | PC.NURSE ---
1500-- Patient tolerated IV infusion well. Denies any side effects. Reviewed possible side effects with patient and provided education materials for patient to take home. Vital signs stable. Instructed patient to call OP treatment room if has any questions or concerns or go to the local ER if needed. Patient safely ambulated from the OP treatment room. --Jasmin Pink RN
== END 2020-11-02 13:21 | disposition home or self-care (01) ==
LOC: CHSTREATRM 13:23
PROVIDERS: PCP Nurse Practitioner Family; Visit Provider Nurse Practitioner Family
DX: Z23 Encounter for immunization (principal); U07.1 COVID-19
CPT/HCPCS: A9270; M0243